=== PATIENT | male | born 1945 | race Caucasian/White ===

== ENCOUNTER 2020-10-05 12:51 | Emergency (ER) | payer OTHER ==
--- OUTSIDE RECORDS SUMMARY | 2020-10-05 12:55 | XMS REPORT | Continuity of Care Document ---
:1945 Author Organization [facility] t Address [address] [place] [address] Care Team Providers Name Role Phone Araseli CRONIN, H Attending Clinician Lab, Fam Pob I Attending Clinician Unavailable Jose Walker DO Attending Clinician Only, Test Attending Clinician Unavailable Doctor Unassigned, Name Attending Clinician Unavailable Joy NICHOLE Attending Clinician Unavailable Problems This patient has no known problems. Allergies, Adverse Reactions, Alerts This patient has no known allergies or adverse reactions. Medications This patient has no known medications. Procedures This patient has no known procedures. Encounters Start End Encounter Admission Attending Care Care Encounter Source Date/Time Date/Time Type Type Clinicians Facility Department ID 2020-06-27 2020-06-27 RAMILA Randall [id number] 00:00:00 00:00:00 (Out) Georgi BRASWELL [id number] [facility] [id number] [id number] 2020-06-26 2020-06-26 Laboratory Lab, [facility] 1.2.840.114 [id number] 15:50:21 16:10:21 Only Fam Pob I Health [id number] [place] 4.2.7.2.686 Professio [id number] nal [address] 2020-05-13 2020-05-13 Patient Aaron [facility] 1.2.840.114 [id number] 00:00:00 00:00:00 Outreach Param PRIMARY [id number] [facility] 4.2.7.2.686 PAVILLION [id number] 2020-03-28 2020-03-28 Laboratory Only, [facility] 1.2.840.114 [id number] 15:26:29 15:41:29 Only Test [place] [id number] [place] 4.2.7.2.686 [place] [id number] 2019-12-19 2019-12-19 Orders Doctor MCGRATH 1.2.840.114 [id number] 00:00:00 00:00:00 Only Unassigned, MICHAELLE [id number] [place] [facility] 4.2.7.2.686 [id number] 2019-10-25 2019-10-25 Telephone RAMILA Hamilton [id number] 00:00:00 00:00:00 Camila BRASWELL [id number] [facility] 4.2.7.2.686 [id number] 2019-10-21 2019-10-21 Laboratory Only, [facility] 1.2.840.114 [id number] 07:15:41 07:15:49 Only Test [place] [id number] [place] 4.2.7.2.686 [place] [id number] 2019-10-19 2019-10-19 Orders Doctor MCGRATH 1.2.840.114 [id number] 00:00:00 00:00:00 Only Unassigned, MICHAELLE [id number] [place] [facility] 4.2.7.2.686 [id number] 2019-10-05 2019-10-05 Orders Doctor MCGRATH 1.2.840.114 [id number] 00:00:00 00:00:00 Only Unassigned, MICHAELLE [id number] [place] [address]686 [id number] 2019-09-21 2019-09-21 Orders Doctor RAMILA Ramiro2.840.114 [id number] 00:00:00 00:00:00 Only Unassigned, MICHAELLE [id number] [place] [address]686 [id number] 2019-09-08 2019-09-08 Orders Doctor RAMILA AntonyJim2.840.114 [id number] 00:00:00 00:00:00 Only Unassigned, MICHAELLE [id number] [place] [address]686 [id number] 2019-06-30 2019-06-30 Orders Doctor MCGRATH Antony.2.840.114 [id number] 00:00:00 00:00:00 Only Unassigned, MICHAELLE 350.1.13.10 [place] [address]686 [id number] 2019-04-19 2019-04-19 Orders Doctor RAMILA Antony.2.840.114 [id number] 00:00:00 00:00:00 Only Unassigned, MICHAELLE [id number] [place] [address]686 [id number] 2018-12-10 2018-12-10 Orders Doctor MCGRATH AntonyJim2.840.114 [id number] 00:00:00 00:00:00 Only Unassigned, MICHAELLE [id number] [place] [id number] [id number] Results This patient has no known results.
--- NOTE | 2020-10-05 16:22 | RAD REPORT ---
EXAM DESCRIPTION: RAD - Chest Single View - 10/05/2020 3:58 pm CLINICAL HISTORY: cough, sob COMPARISON: March 2020 TECHNIQUE: AP portable chest image was obtained 10/05/2020 3:58 pm . FINDINGS: No peripheral mass consolidation. Heart size is mildly prominent. Central vasculature prom inent as well. Left-sided pacemaker is again noted. Interstitial markings are prominent. No measurabl e pleural effusion and no pneumothorax. No acute bony abnormality seen. No acute aortic findings susp ected. IMPRESSION: No focal mass or consolidation. Heart, vasculature and lung markings are all mildly prominent. Correlation is needed with any clinica l findings for mild failure or volume overload.
--- NOTE | 2020-10-05 16:41 | ER ---
Nurse's Notes [facility] Name: Rudi Moreno Age: 75 yrs Sex: Male : 1945 Arrival Date: 10/05/2020 Time: 12:56 Bed 13 [facility] MD: Diagnosis: Acute upper respiratory infection, unspecified Presentation: 10/05 13:08 Chief complaint: Patient states: Cough, runny nose for 1 week. O2 sat 88-93% this ss morning, home health nurse sent him in for eval. No fever. Coronavirus screen: Client denies travel out of the [place] in the last 14 days. congestion, cough unrelated to allergies, difficulty breathing, shortness of breath. Ebola Screen: Patient denies travel to an Ebola-affected area in the 21 days before illness onset. Initial Sepsis Screen: Does the patient meet any 2 criteria? No. Patient's initial sepsis screen is negative. Does the patient have a suspected source of infection? Yes: Productive cough/pneumonia. Risk Assessment: Do you want to hurt yourself or someone else? Patient reports no desire to harm self or others. Onset of symptoms was September 28, 2020. 13:08 Method Of Arrival: Wheelchair ss 13:08 Acuity: ERICK 3 ss Historical: - Allergies: 13:11 NKA; ss 13:11 Iodine; ss - PMHx: 13:11 Gout; CHF; Diabetes - IDDM; COPD; Hypothyroidism; Anemia; Atrial Fib; PAD; ss - PSHx: 13:11 pacemaker; ss - Immunization history:: Client reports receiving the 2nd dose of the Covid vaccine, Flu vaccine is up to date. - Social history:: Smoking status: Patient/guardian denies using tobacco, the patient reports quitting approximately 20 years ago. Screenin:37 Abuse screen: Denies threats or abuse. Denies injuries from another. Nutritional zb screening: No deficits noted. Tuberculosis screening: No symptoms or risk factors identified. Fall Risk Fall in past 12 months (25 points). Secondary diagnosis (15 points) impaired mobility, No IV (0 pts). Ambulatory Aid- None/Bed Rest/Nurse Assist (0 pts). Gait- Normal/Bed Rest/Wheelchair (0 pts) Mental Status- Oriented to own ability (0 pts). Total Clark Fall Scale indicates Low Risk Score (25-44 pts). Fall prevention measures have been instituted. Side Rails Up X 2 Placed close to Nursing Station Frequent Obs/Assesments occuring As available Patient and Family Educated on Fall Prevention Program and strategies. Assessment: 15:38 General: Appears in no apparent distress. comfortable, Behavior is calm, cooperative. zb Pain: Denies pain. Neuro: Level of Consciousness is awake, alert, obeys commands, Oriented to person, place, time, situation. Cardiovascular: Heart tones S1 S2 present Patient's skin is warm and dry. Respiratory: Airway is patent Respiratory effort is even, unlabored, Respiratory pattern is regular, Breath sounds are diminished bilaterally. Breath sounds with rhonchi in left posterior lower lobe and right posterior lower lobe the patient has mild shortness of breath. GI: Abdomen is flat. Derm: Skin is fragile, is thin, Skin is normal. Musculoskeletal: Range of motion: intact in all extremities. Vital Signs: 13:08 BP 149 / 67; Pulse 70; Resp 18; Temp 97.7; Pulse Ox 96% on 3 lpm NC; Weight 85.28 kg; ss Height 5 ft. 8 in. (172.72 cm); Pain 0/10; 15:40 BP 150 / 72; Pulse 70; Resp 18; Pulse Ox 100% on 6 lpm NC; zb 16:49 BP 149 / 80; Pulse 70; Resp 16; Pulse Ox 100% on 3 lpm NC; zb 13:08 Body Mass Index 28.59 (85.28 kg, 172.72 cm) ED Course: 12:56 Patient arrived in ED. bp1 13:08 Arm band placed on. ss 13:10 Triage completed. ss 13:42 Jarrod Burgos PA is PHCP. jmm 13:42 Hola Moreno MD is Attending Physician. jmm 13:43 Dontae Peters MD is Attending Physician. jmm 14:51 Rosalia Huffman, DAYANARA is Primary Nurse. zb 15:58 Chest Single View XRAY In Process Unspecified. EDMS 16:49 No provider procedures requiring assistance completed. Patient did not have IV access zb during this emergency room visit. 16:50 Patient has correct armband on for positive identification. Bed in low position. Call zb light in reach. Administered Medications: No medications were administered Outcome: 16:40 Discharge ordered by . jmm 16:49 Discharged to home via wheelchair. felix 16:49 Condition: stable 16:49 Discharge instructions given to patient, Instructed on discharge instructions, follow up and referral plans. medication usage, Demonstrated understanding of instructions, follow-up care, medications, Prescriptions given X 3. 16:50 Patient left the ED. felix Signatures: Dispatcher [employer] EDMS Jarrod Burgos PA PA jmm Smirch, Shelby, Montse Galvez RN, Zipporah, RN RN zb
--- NOTE | 2020-10-05 16:41 | EDPHYS ---
Physician Documentation [facility] Name: Rudi Moreno Age: 75 yrs Sex: Male : 1945 Arrival Date: 10/05/2020 Time: 12:56 Bed 13 Private MD: ED Physician Dontae Peters HPI: 10/05 14:39 This 75 yrs old Male presents to ER via Wheelchair with complaints of Runny jmm Nose, Cough. 14:39 The patient or guardian reports cough. Onset: The symptoms/episode began/occurred jmm gradually, 1 week(s) ago. Modifying factors: The symptoms are alleviated by nothing, the symptoms are aggravated by nothing. Associated signs and symptoms: Pertinent positives: rhinorrhea, Pertinent negatives: fever. This is a 75 year old male with a history of CHF, DM, COPD, anemia, hypothyroidism that presents to the ED with complaints of sinus congestion, cough. Patient states this has exacerbated his COPD. Having difficulty getting o2 through his nasal cannula. Denies hemoptysis or leg swelling. . Historical: - Allergies: 13:11 NKA; ss 13:11 Iodine; ss - PMHx: 13:11 Gout; CHF; Diabetes - IDDM; COPD; Hypothyroidism; Anemia; Atrial Fib; PAD; ss - PSHx: 13:11 pacemaker; ss - Immunization history:: Client reports receiving the 2nd dose of the Covid vaccine, Flu vaccine is up to date. - Social history:: Smoking status: Patient/guardian denies using tobacco, the patient reports quitting approximately 20 years ago. ROS: 14:39 Constitutional: Negative for fever, chills, and weight loss. jmm 14:39 ENT: Positive for sinus congestion. 14:39 Respiratory: Positive for cough. 14:39 All other systems are negative. Exam: 14:39 Constitutional: This is a well developed, well nourished patient who is awake, alert, jmm and in no acute distress. Head/Face: atraumatic. Eyes: EOMI, no conjunctival erythema appreciated ENT: Moist Mucus Membranes Neck: Trachea midline, Supple Chest/axilla: Normal chest wall appearance and motion. Cardiovascular: Regular rate and rhythm. No edema appreciated Respiratory: Normal respirations, no respiratory distress appreciated Abdomen/GI: Non distended, soft Back: Normal ROM Skin: General appearance color normal 14:39 Musculoskeletal/extremity: ROM: intact in all extremities. 14:39 Skin: Appearance: Color: normal in color. 14:39 Neuro: Orientation: is normal, Mentation: is normal, Memory: is normal. Vital Signs: 13:08 BP 149 / 67; Pulse 70; Resp 18; Temp 97.7; Pulse Ox 96% on 3 lpm NC; Weight 85.28 kg; ss Height 5 ft. 8 in. (172.72 cm); Pain 0/10; 15:40 BP 150 / 72; Pulse 70; Resp 18; Pulse Ox 100% on 6 lpm NC; zb 16:49 BP 149 / 80; Pulse 70; Resp 16; Pulse Ox 100% on 3 lpm NC; zb 13:08 Body Mass Index 28.59 (85.28 kg, 172.72 cm) ss MDM: 14:39 Patient medically screened. [facility] 16:38 Data reviewed: vital signs, nurses notes. Counseling: I had a detailed discussion with [facility] the patient and/or guardian regarding: the historical points, exam findings, and any diagnostic results supporting the discharge/admit diagnosis, radiology results, the need for outpatient follow up, to return to the emergency department if symptoms worsen or persist or if there are any questions or concerns that arise at home. ED course: Patient is alert and non toxic in appearance in the ED. No signs of resp distress. Patient advised to follow up with pcp and otherwise given strict return precautions. patient understood and agrees with the plan of care. . 10/05 14:40 Order name: Chest Single View XRAY; Complete Time: 16:22 [facility] Administered Medications: No medications were administered Disposition: 10/06 14:36 Co-signature as Attending Physician, Dontae Peters MD. ma2 Disposition: 10/05/20 16:40 Discharged to Home. Impression: Acute upper respiratory infection, unspecified. - Condition is Stable. - Discharge Instructions: Upper Respiratory Infection, Adult. - Prescriptions for Prednisone 20 mg Oral Tablet - take 3 tablet by ORAL route once daily for 5 days; 15 tablet. Zithromax Z- Tor 250 mg Oral Tablet - take 1 tablet by ORAL route as directed for 5 days Day 1 - take two (2) tablets one time. Day 2, 3, 4 , 5 take one (1) tablet once daily.; 6 tablet. Albuterol Sulfate 90 mcg/actuation - inhale 1-2 puff by INHALATION route every 4-6 hours; 1 Inhaler. - Medication Reconciliation Form, Thank You Letter, Antibiotic Education, Prescription Opioid Use form. - Follow up: Private Physician; When: 2 - 3 days; Reason: Recheck today's complaints, Continuance of care, Re-evaluation by your physician. Signatures: Dispatcher [employer] EDMS Jarrod Burgos PA PA jmm Smirch, Shelby, RN RN Dontae Peters MD MD ma2 Rosalia Huffman RN RN zb Corrections: (The following items were deleted from the chart) 10/05 16:50 16:40 10/05/2020 16:40 Discharged to Home. Impression: Acute upper respiratory zb infection, unspecified. Condition is Stable. Forms are Medication Reconciliation Form, Thank You Letter, Antibiotic Education, Prescription Opioid Use. Follow up: Private Physician; When: 2 - 3 days; Reason: Recheck today's complaints, Continuance of care, Re-evaluation by your physician. temo
[2020-10-05 16:55] VITALS: TEMP 97.7
[2020-10-05 16:57] VITALS: O2SAT 100
[2020-10-05 16:58] VITALS: BP 149/80
== END 2020-10-05 16:50 | disposition home or self-care (01) ==
LOC: ER 12:51
DX: J06.9 Acute upper respiratory infection, unspecified (principal); Z87.891 Personal history of nicotine dependence; M10.9 Gout, unspecified; I50.9 Heart failure, unspecified; E11.51 Type 2 diabetes mellitus with diabetic peripheral angiopathy without gangrene; J44.9 Chronic obstructive pulmonary disease, unspecified; E03.9 Hypothyroidism, unspecified; D64.9 Anemia, unspecified; I48.91 Unspecified atrial fibrillation; Z95.0 Presence of cardiac pacemaker
CPT/HCPCS: 71045

== ENCOUNTER 2021-08-17 00:55 | Emergency (ER) | payer OTHER ==
--- OUTSIDE RECORDS SUMMARY | 2021-08-17 01:26 | XMS REPORT | Continuity of Care Document ---
:1945 Author Organization [facility] t Address [address] [place] [address] Care Team Providers Name Role Phone PHAN Primary Care Physician Unavailable Sharon Attending Clinician Unavailable Leslie Attending Clinician Unavailable LEWIS Attending Clinician Unavailable DAISY Attending Clinician Unavailable Doctor Unassigned, Name Attending Clinician Unavailable Araseli CRONIN, H Attending Clinician Lab, Fam Pob I Attending Clinician Unavailable Anedax NAVAP Attending Clinician PATRIZIA Attending Clinician Unavailable Claribel GANDHI Attending Clinician Unavailable JOSE STUART Attending Clinician Unavailable Jose Stuart DO Attending Clinician Only, Test Attending Clinician Unavailable Mj CRONIN Attending Clinician Lisy CLARKE Attending Clinician Unavailable Joy NICHOLE Attending Clinician Unavailable Lisy HAWTHORNE Attending Clinician Unavailable Lisy Doyle Attending Clinician Claribel ALEMAN Attending Clinician Unavailable COLLEEN VARNER Attending Clinician Unavailable COLLEEN VARNER Attending Clinician Unavailable PATY COTE Admitting Clinician Unavailable COLLEEN VARNER Admitting Clinician Unavailable Payers Payer Name Policy Type Policy Number Effective Date Expiration Date Clarissa alatorre MEDICARE PART A [id number] 2007 \T\ B 00:00:00 MEDICAID OF [place] [id number] 2007 00:00:00 Advance Directives Directive Decision Effective Termination Comments Source Date Date Healthcare Agents on N/A [facility] FileNameRelationshipHealthcare [facility] Agent Medical RelationshipCommunicationMagruder HospitalHealth Care [phone] (Mobile) [email or web address] [phone] (Mobile) Reymundo AndersonOther[facility] [phone] (Mobile) Problems Condition Condition Condition Status Onset Resolution Last Treating Co mments Source Name Details Category Date Date Treatment Clinician Date Hyperkalem Hyperkalem Disease Active 2018-04 U nivers ia ia 2-22 ity of 00:00: [address] Decreased Decreased Disease Active Uni vers activity activity 6-23 ity of tolerance tolerance 00:00: [address] Allergies, Adverse Reactions, Alerts Allergy Allergy Status Severity Reaction(s) Onset Inactive Treating Comm ents Source Name Type Date Date Clinician NO KNOWN Drug Active Univers ALLERGIE Class ity of S [facility] Social History Social Habit Start Date Stop Date Quantity Comments Source Exposure to 2021-08-02 2021-08-12 Not sure [facility] SARS-CoV-2 00:00:00 14:36:00 [facility] (event) [place] Alcohol intake 2019-04-26 2019-04-26 Ex-drinker [facility] 00:00:00 00:00:00 (finding) [facility] Tobacco use and 2019-02-22 2019-02-22 Never used Universit y of exposure 00:00:00 00:00:00 [facility] History of 2001-02-18 Cigarette Smoker [facility] ty of tobacco use 00:00:00 [facility] Sex [birth year] Universit y of 00:00:00 00:00:00 [facility] Smoking Status Start Date Stop Date Source Unknown if ever smoked [facility] Former smoker 2019-02-22 00:00:00 2019-02-22 00:00:00 [facility] Medications Ordered Filled Start Stop Current Ordering Indication Dosage Frequency Signature Comments Components Source Medication Medication Date Date Medication? Clinician (SIG) Name Name allopurinol 2018-04 Yes 100mg Take 100 U nivers 100 mg 2-27 mg by ity of tablet 23:33: mouth [place] 57 daily. Medical Branch aspirin 81 2018-04 Yes 81mg Take 81 mg U nivers mg chewable 2-27 by mouth ity of tablet 23:33: daily. [place] 57 Medical Branch bisacodyl 5 2018-04 Yes 5mg Take 5 mg U nivers mg EC 2-27 by mouth ity of tablet 23:33: once daily [place] 57 as needed Medical for Branch Constipati on. docusate 2018-04 Yes 100mg Take 100 Univ ers 100 mg 2-27 mg by ity of capsule 23:33: mouth [place] 57 daily. Medical Branch apixaban 2018-04 Yes 5mg Take 5 mg Univ ers (ELIQUIS) 2-27 by mouth 2 ity of 2.5 mg 23:33: (two) [place] tablet 57 times Medical daily. Branch ferrous 2018-04 Yes 325mg Take 325 Unive rs sulfate 325 2-27 mg by ity of mg (65 mg 23:33: mouth 3 [place] iron) EC 57 (three) Medical tablet times [place] daily with meals. gabapentin 2018-04 Yes 300mg Take 300 Un clara 300 mg 2-27 mg by ity of capsule 23:33: mouth 2 [place] 57 (two) Medical times Branch daily. Indication s: 2 capsules by mouth 2 times a day insulin 2018- Yes 20U inject 20 Unive rs glargine,hu 2-27 Units ity of m.rec.anlog 23:33: [place] the [place] (LANTUS 57 skin at Medical U-100 bedtime. Branch INSULIN SC) budesonide- 2018-04 Yes 2{puff} Inhale 2 Univers formoterol 2-27 Puffs 2 ity of (SYMBICORT) 23:33: (two) [place] 80-4.5 57 times Medical mcg/actuati daily. Branch on inhaler tamsulosin 2018-04 Yes Take by Uni vers 0.4 mg 24 2-27 mouth at ity of hr capsule 23:33: bedtime. [place] 57 Medical Branch torsemide 2018-04 Yes 20mg Take 20 mg Un clara 20 mg 2-27 by mouth 2 ity of tablet 23:33: (two) [place] 57 times Medical daily. Branch traZODone 2018-04 Yes 2722 100mg Take 100 Uni vers 100 mg 2-27 mg by ity of tablet 23:33: mouth at [place] 57 bedtime. Medical Indication Branch s: difficulty sleeping vitamin 2018-04 Yes 1000ug Take 1,000 Un clara B-12 2-27 mcg by ity of (VITAMIN 23:33: mouth [place] B-12) 1,000 57 daily. Medica l mcg tablet Branch ascorbic 2018-04 Yes 500mg Take 500 Univ ers acid, 2-27 mg by ity of vitamin C, 23:33: mouth [place] (VITAMIN C) 57 (two) Medical 500 mg times Branch tablet daily. ondansetron 2018-04 Yes 4mg Take 4 mg U nivers 4 mg tablet 2-27 by mouth ity of 23:33: every 8 [place] 57 (eight) Medical hours as Branch needed. allopurinol 2018-04 Yes 100mg Take 100 U nivers 100 mg 2-27 mg by ity of tablet 23:33: mouth [place] 57 daily. Medical Branch aspirin 81 2018-04 Yes 81mg Take 81 mg U nivers mg chewable 2-27 by mouth ity of tablet 23:33: daily. [place] 57 Medical Branch bisacodyl 5 2018-04 Yes 5mg Take 5 mg U nivers mg EC 2-27 by mouth ity of tablet 23:33: once daily [place] 57 as needed Medical for Branch Constipati on. docusate 2018-04 Yes 100mg Take 100 Univ ers 100 mg 2-27 mg by ity of capsule 23:33: mouth [place] 57 daily. Medical Branch apixaban 2018-04 Yes 5mg Take 5 mg Univ ers (ELIQUIS) 2-27 by mouth 2 ity of 2.5 mg 23:33: (two) [place] tablet 57 times Medical daily. Branch ferrous 2018-04 Yes 325mg Take 325 Unive rs sulfate 325 2-27 mg by ity of mg (65 mg 23:33: mouth 3 [place] iron) EC 57 (three) Medical tablet times Branch daily with meals. gabapentin 2018-04 Yes 300mg Take 300 Un clara 300 mg 2-27 mg by ity of capsule 23:33: mouth 2 [place] 57 (two) Medical times Branch daily. Indication s: 2 capsules by mouth 2 times a day insulin 2018-04 Yes 20U inject 20 Unive rs glargine,hu 2-27 Units ity of m.rec.anlog 23:33: under the [place] (LANTUS 57 skin at Medical U-100 bedtime. Branch INSULIN SC) budesonide- 2018-04 Yes 2{puff} Inhale 2 Univers formoterol 2-27 Puffs 2 ity of (SYMBICORT) 23:33: (two) [place] 80-4.5 57 times Medical mcg/actuati daily. Branch on inhaler tamsulosin 2018-04 Yes Take by Uni vers 0.4 mg 24 2-27 mouth at ity of hr capsule 23:33: bedtime. [place] 57 Medical Branch torsemide 2018-04 Yes 20mg Take 20 mg Un clara 20 mg 2-27 by mouth 2 ity of tablet 23:33: (two) [place] 57 times Medical daily. Branch traZODone 2018-04 Yes 2722 100mg Take 100 Uni vers 100 mg 2-27 mg by ity of tablet 23:33: mouth at [place] 57 bedtime. Medical Indication Branch s: difficulty sleeping vitamin 2018-04 Yes 1000ug Take 1,000 Un clara B-12 2-27 mcg by ity of (VITAMIN 23:33: mouth [place] B-12) 1,000 57 daily. Medica l mcg tablet Branch ascorbic 2018-04 Yes 500mg Take 500 Univ ers acid, 2-27 mg by ity of vitamin C, 23:33: mouth 2 [place] (VITAMIN C) 57 (two) Medical 500 mg times Branch tablet daily. ondansetron 2018-04 Yes 4mg Take 4 mg U nivers 4 mg tablet 2-27 by mouth ity of 23:33: every 8 [place] 57 (eight) Medical hours as Branch needed. allopurinol 2018-04 Yes 100mg Take 100 U nivers 100 mg 2-27 mg by ity of tablet 23:33: mouth [place] 57 daily. Medical Branch aspirin 81 2018-04 Yes 81mg Take 81 mg U nivers mg chewable 2-27 by mouth ity of tablet 23:33: daily. [place] 57 Medical Branch bisacodyl 5 2018-04 Yes 5mg Take 5 mg U nivers mg EC 2-27 by mouth ity of tablet 23:33: once daily [place] 57 as needed Medical for Branch Constipati on. docusate 2018-04 Yes 100mg Take 100 Univ ers 100 mg 2-27 mg by ity of capsule 23:33: mouth [place] 57 daily. Medical Branch apixaban 2018-04 Yes 5mg Take 5 mg Univ ers (ELIQUIS) 2-27 by mouth 2 ity of 2.5 mg 23:33: (two) [place] tablet 57 times Medical daily. Branch ferrous 2018-04 Yes 325mg Take 325 Unive rs sulfate 325 2-27 mg by ity of mg (65 mg 23:33: mouth 3 [place] iron) EC 57 (three) Medical tablet times Branch daily with meals. gabapentin 2018-04 Yes 300mg Take 300 Un [place] 300 mg 2-27 mg by ity of capsule 23:33: mouth 2 [place] 57 (two) Medical times Branch daily. Indication s: 2 capsules by mouth 2 times a day insulin 2018-04 Yes 20U inject 20 Unive rs glargine,hu 2-27 Units ity of m.rec.anlog 23:33: under the [place] (LANT[place] 57 skin at Medical U-100 bedtime. Branch INSULIN SC) budesonide- 2018-04 Yes 2{puff} Inhale 2 Univers formoterol 2-27 Puffs 2 ity of (SYMBICORT) 23:33: (two) [place] 80-4.5 57 times Medical mcg/actuati daily. Branch on inhaler tamsulosin 2018-04 Yes Take by Uni vers 0.4 mg 24 2-27 mouth at ity of hr capsule 23:33: bedtime. [place] 57 Medical Branch torsemide 2018-04 Yes 20mg Take 20 mg Un clara 20 mg 2-27 by mouth 2 ity of tablet 23:33: (two) [place] 57 times Medical daily. Branch traZODone 2018-04 Yes 2722 100mg Take 100 Uni vers 100 mg 2-27 mg by ity of tablet 23:33: mouth at [place] 57 bedtime. Medical Indication Branch s: difficulty sleeping vitamin 2018-04 Yes 1000ug Take 1,000 Un cl[place] B-12 2-27 mcg by ity of (VITAMIN 23:33: mouth [place] B-12) 1,000 57 daily. Medica l mcg tablet Branch ascorbic 2018-04 Yes 500mg Take 500 Univ ers acid, 2-27 mg by ity of vitamin C, 23:33: mouth 2 [place] (VITAMIN C) 57 (two) Medical 500 mg times Branch tablet daily. ondansetron 2018-04 Yes 4mg Take 4 mg U nivers 4 mg tablet 2-27 by mouth ity of 23:33: every 8 [place] 57 (eight) Medical hours as Branch needed. allopurinol 2018-04 Yes 100mg Take 100 U nivers 100 mg 2-27 mg by ity of tablet 23:33: mouth [place] 57 daily. Medical Branch aspirin 81 2018-04 Yes 81mg Take 81 mg U nivers mg chewable 2-27 by mouth ity of tablet 23:33: daily. [place] 57 Medical Branch bisacodyl 5 2018-04 Yes 5mg Take 5 mg U nivers mg EC 2-27 by mouth ity of tablet 23:33: once daily [place] 57 as needed Medical for Branch Constipati on. docusate 2018-04 Yes 100mg Take 100 Univ ers 100 mg 2-27 mg by ity of capsule 23:33: mouth [place] 57 daily. Medical Branch apixaban 2018-04 Yes 5mg Take 5 mg Univ ers (ELIQUIS) 2-27 by mouth 2 ity of 2.5 mg 23:33: (two) [place] tablet 57 times Medical daily. Branch ferrous 2018-04 Yes 325mg Take 325 Unive rs sulfate 325 2-27 mg by ity of mg (65 mg 23:33: mouth 3 [place] iron) EC 57 (three) Medical tablet times Branch daily with meals. gabapentin 2018-04 Yes 300mg Take 300 Un clara 300 mg 2-27 mg by ity of capsule 23:33: mouth 2 [place] 57 (two) Medical times Branch daily. Indication s: 2 capsules by mouth 2 times a day insulin 2018-04 Yes 20U inject 20 Unive rs glargine,hu 2-27 Units ity of m.rec.anlog 23:33: under the [place] ([place] 57 skin at Medical U-100 bedtime. Branch INSULIN SC) budesonide- 2018-04 Yes 2{puff} Inhale 2 Univers formoterol 2-27 Puffs 2 ity of (SYMBICORT) 23:33: (two) [place] 80-4.5 57 times Medical mcg/actuati daily. Branch on inhaler tamsulosin 2018-04 Yes Take by Uni vers 0.4 mg 24 2-27 mouth at ity of hr capsule 23:33: bedtime. [place] 57 Medical Branch torsemide 2018-04 Yes 20mg Take 20 mg Un clara 20 mg 2-27 by mouth 2 ity of tablet 23:33: (two) [place] 57 times Medical daily. Branch traZODone 2018-04 Yes 2722 100mg Take 100 Uni vers 100 mg 2-27 mg by ity of tablet 23:33: mouth at [place] 57 bedtime. Medical Indication Branch s: difficulty sleeping vitamin 2018-04 Yes 1000ug Take 1,000 Un cl[place] B-12 2-27 mcg by ity of (VITAMIN 23:33: mouth [place] B-12) 1,000 57 daily. Medica l mcg tablet Branch ascorbic 2018-04 Yes 500mg Take 500 Univ ers acid, 2-27 mg by ity of vitamin C, 23:33: mouth 2 [place] (VITAMIN C) 57 (two) Medical 500 mg times Branch tablet daily. ondansetron 2018-04 Yes 4mg Take 4 mg U nivers 4 mg tablet 2-27 by mouth ity of 23:33: every 8 [place] 57 (eight) Medical hours as Branch needed. allopurinol 2018-04 Yes 100mg Take 100 U nivers 100 mg 2-27 mg by ity of tablet 23:33: mouth [place] 57 daily. Medical Branch aspirin 81 2018-04 Yes 81mg Take 81 mg U nivers mg chewable 2-27 by mouth ity of tablet 23:33: daily. [place] 57 Medical Branch bisacodyl 5 2018-04 Yes 5mg Take 5 mg U nivers mg EC 2-27 by mouth ity of tablet 23:33: once daily [place] 57 as needed Medical for Branch Constipati on. docusate 2018-04 Yes 100mg Take 100 Univ ers 100 mg 2-27 mg by ity of capsule 23:33: mouth [place] 57 daily. Medical Branch apixaban 2018-04 Yes 5mg Take 5 mg Univ ers (ELIQUIS) 2-27 by mouth 2 ity of 2.5 mg 23:33: (two) [place] tablet 57 times Medical daily. Branch ferrous 2018-04 Yes 325mg Take 325 Unive rs sulfate 325 2-27 mg by ity of mg (65 mg 23:33: mouth 3 [place] iron) EC 57 (three) Medical tablet times Branch daily with meals. gabapentin 2018-04 Yes 300mg Take 300 Un clara 300 mg 2-27 mg by ity of capsule 23:33: mouth 2 [place] 57 (two) Medical times Branch daily. Indication s: 2 capsules by mouth 2 times a day insulin 2018-04 Yes 20U inject 20 Unive rs glargine,hu 2-27 Units ity of m.rec.anlog 23:33: under the [place] ([place] 57 skin at Medical U-100 bedtime. Branch INSULIN SC) budesonide- 2018-04 Yes 2{puff} Inhale 2 Univers formoterol 2-27 Puffs 2 ity of (SYMBICORT) 23:33: (two) [place] 80-4.5 57 times Medical mcg/actuati daily. Branch on inhaler tamsulosin 2018-04 Yes Take by Uni vers 0.4 mg 24 2-27 mouth at ity of hr capsule 23:33: bedtime. [place] 57 Medical Branch torsemide 2018-04 Yes 20mg Take 20 mg Un clara 20 mg 2-27 by mouth 2 ity of tablet 23:33: (two) [place] 57 times Medical daily. Branch traZODone 2018-04 Yes 2722 100mg Take 100 Uni vers 100 mg 2-27 mg by ity of tablet 23:33: mouth at [place] 57 bedtime. Medical Indication Branch s: difficulty sleeping vitamin 2018- Yes 1000ug Take 1,000 Un cl[place] B-12 2-27 mcg by ity of (VITAMIN 23:33: mouth [place] B-12) 1,000 57 daily. Medica l mcg tablet Branch ascorbic 2018-04 Yes 500mg Take 500 Univ ers acid, 2-27 mg by ity of vitamin C, 23:33: mouth 2 [place] (VITAMIN C) 57 (two) Medical 500 mg times Branch tablet daily. ondansetron 2018-04 Yes 4mg Take 4 mg U nivers 4 mg tablet 2-27 by mouth ity of 23:33: every 8 [place] 57 (eight) Medical hours as Branch needed. allopurinol 2018-04 Yes 100mg Take 100 U nivers 100 mg 2-27 mg by ity of tablet 23:33: mouth [place] 57 daily. Medical Branch aspirin 81 2018-04 Yes 81mg Take 81 mg U nivers mg chewable 2-27 by mouth ity of tablet 23:33: daily. [place] 57 Medical Branch bisacodyl 5 2018-04 Yes 5mg Take 5 mg U nivers mg EC 2-27 by mouth ity of tablet 23:33: once daily [place] 57 as needed Medical for Branch Constipati on. docusate 2018-04 Yes 100mg Take 100 Univ ers 100 mg 2-27 mg by ity of capsule 23:33: mouth [place] 57 daily. Medical Branch apixaban 2018-04 Yes 5mg Take 5 mg Univ ers (ELIQUIS) 2-27 by mouth 2 ity of 2.5 mg 23:33: (two) [place] tablet 57 times Medical daily. Branch ferrous 2018-04 Yes 325mg Take 325 Unive rs sulfate 325 2-27 mg by ity of mg (65 mg 23:33: mouth 3 [place] iron) EC 57 (three) Medical tablet times Branch daily with meals. gabapentin 2018-04 Yes 300mg Take 300 Un clara 300 mg 2-27 mg by ity of capsule 23:33: mouth 2 [place] 57 (two) Medical times Branch daily. Indication s: 2 capsules by mouth 2 times a day insulin 2018-04 Yes 20U inject 20 Unive rs glargine,hu 2-27 Units ity of m.rec.anlog 23:33: under the [place] ([place] 57 skin at Medical U-100 bedtime. Branch INSULIN SC) budesonide- 2018-04 Yes 2{puff} Inhale 2 Univers formoterol 2-27 Puffs 2 ity of (SYMBICORT) 23:33: (two) [place] 80-4.5 57 times Medical mcg/actuati daily. Branch on inhaler tamsulosin 2018-04 Yes Take by Uni vers 0.4 mg 24 2-27 mouth at ity of hr capsule 23:33: bedtime. [place] 57 Medical Branch torsemide 2018-04 Yes 20mg Take 20 mg Un clara 20 mg 2-27 by mouth 2 ity of tablet 23:33: (two) [place] 57 times Medical daily. Branch traZODone 2018-04 Yes 2722 100mg Take 100 Uni vers 100 mg 2-27 mg by ity of tablet 23:33: mouth at [place] 57 bedtime. Medical Indication Branch s: difficulty sleeping vitamin 2018- Yes 1000ug Take 1,000 Un cl[place] B-12 2-27 mcg by ity of (VITAMIN 23:33: mouth [place] B-12) 1,000 57 daily. Medica l mcg tablet Branch ascorbic 2018-04 Yes 500mg Take 500 Univ ers acid, 2-27 mg by ity of vitamin C, 23:33: mouth 2 [place] (VITAMIN C) 57 (two) Medical 500 mg times Branch tablet daily. ondansetron 2018-04 Yes 4mg Take 4 mg U nivers 4 mg tablet 2-27 by mouth ity of 23:33: every 8 [place] 57 (eight) Medical hours as Branch needed. allopurinol 2018-04 Yes 100mg Take 100 U nivers 100 mg 2-27 mg by ity of tablet 23:33: mouth [place] 57 daily. Medical Branch aspirin 81 2018-04 Yes 81mg Take 81 mg U nivers mg chewable 2-27 by mouth ity of tablet 23:33: daily. [place] 57 Medical Branch bisacodyl 5 2018-04 Yes 5mg Take 5 mg U nivers mg EC 2-27 by mouth ity of tablet 23:33: once daily [place] 57 as needed Medical for Branch Constipati on. docusate 2018-04 Yes 100mg Take 100 Univ ers 100 mg 2-27 mg by ity of capsule 23:33: mouth [place] 57 daily. Medical Branch apixaban 2018-04 Yes 5mg Take 5 mg Univ ers (ELIQUIS) 2-27 by mouth 2 ity of 2.5 mg 23:33: (two) [place] tablet 57 times Medical daily. Branch ferrous 2018-04 Yes 325mg Take 325 Unive rs sulfate 325 2-27 mg by ity of mg (65 mg 23:33: mouth 3 [place] iron) EC 57 (three) Medical tablet times Branch daily with meals. gabapentin 2018-04 Yes 300mg Take 300 Un cl[place] 300 mg 2-27 mg by ity of capsule 23:33: mouth 2 [place] 57 (two) Medical times Branch daily. Indication s: 2 capsules by mouth 2 times a day insulin 2018-04 Yes 20U inject 20 Unive rs glargine,hu 2-27 Units ity of m.rec.anlog 23:33: under the [place] ([place] 57 skin at Medical U-100 bedtime. Branch INSULIN SC) budesonide- 2018-04 Yes 2{puff} Inhale 2 Univers formoterol 2-27 Puffs 2 ity of (SYMBICORT) 23:33: (two) [place] 80-4.5 57 times Medical mcg/actuati daily. Branch on inhaler tamsulosin 2018-04 Yes Take by Uni vers 0.4 mg 24 2-27 mouth at ity of hr capsule 23:33: bedtime. [place] 57 Medical Branch torsemide 2018-04 Yes 20mg Take 20 mg Un clara 20 mg 2-27 by mouth 2 ity of tablet 23:33: (two) [place] 57 times Medical daily. Branch traZODone 2018-04 Yes 2722 100mg Take 100 Uni vers 100 mg 2-27 mg by ity of tablet 23:33: mouth at [place] 57 bedtime. Medical Indication Branch s: difficulty sleeping vitamin 2018-04 Yes 1000ug Take 1,000 Un cl[place] B-12 2-27 mcg by ity of (VITAMIN 23:33: mouth [place] B-12) 1,000 57 daily. Medica l mcg tablet Branch ascorbic 2018-04 Yes 500mg Take 500 Univ ers acid, 2-27 mg by ity of vitamin C, 23:33: mouth 2 [place] (VITAMIN C) 57 (two) Medical 500 mg times Branch tablet daily. ondansetron 2018-04 Yes 4mg Take 4 mg U nivers 4 mg tablet 2-27 by mouth ity of 23:33: every 8 [place] 57 (eight) Medical hours as Branch needed. allopurinol 2018-04 Yes 100mg Take 100 U nivers 100 mg 2-27 mg by ity of tablet 23:33: mouth [place] 57 daily. Medical Branch aspirin 81 2018-04 Yes 81mg Take 81 mg U nivers mg chewable 2-27 by mouth ity of tablet 23:33: daily. [place] 57 Medical Branch bisacodyl 5 2018-04 Yes 5mg Take 5 mg U nivers mg EC 2-27 by mouth ity of tablet 23:33: once daily [place] 57 as needed Medical for Branch Constipati on. docusate 2018-04 Yes 100mg Take 100 Univ ers 100 mg 2-27 mg by ity of capsule 23:33: mouth [place] 57 daily. Medical Branch apixaban 2018-04 Yes 5mg Take 5 mg Univ ers (ELIQUIS) 2-27 by mouth 2 ity of 2.5 mg 23:33: (two) [place] tablet 57 times Medical daily. Branch ferrous 2018-04 Yes 325mg Take 325 Unive rs sulfate 325 2-27 mg by ity of mg (65 mg 23:33: mouth 3 [place] iron) EC 57 (three) Medical tablet times Branch daily with meals. gabapentin 2018-04 Yes 300mg Take 300 Un cl[place] 300 mg 2-27 mg by ity of capsule 23:33: mouth 2 [place] 57 (two) Medical times Branch daily. Indication s: 2 capsules by mouth 2 times a day insulin 2018-04 Yes 20U inject 20 Unive rs glargine,hu 2-27 Units ity of m.rec.anlog 23:33: under the [place] ([place] 57 skin at Medical U-100 bedtime. Branch INSULIN SC) budesonide- 2018-04 Yes 2{puff} Inhale 2 Univers formoterol 2-27 Puffs 2 ity of (SYMBICORT) 23:33: (two) [place] 80-4.5 57 times Medical mcg/actuati daily. Branch on inhaler tamsulosin 2018-04 Yes Take by Uni vers 0.4 mg 24 2-27 mouth at ity of hr capsule 23:33: bedtime. [place] 57 Medical Branch torsemide 2018-04 Yes 20mg Take 20 mg Un cl[place] 20 mg 2-27 by mouth 2 ity of tablet 23:33: (two) [place] 57 times Medical daily. Branch traZODone 2018-04 Yes 2722 100mg Take 100 Uni vers 100 mg 2-27 mg by ity of tablet 23:33: mouth at [place] 57 bedtime. Medical Indication Branch s: difficulty sleeping vitamin 2018- Yes 1000ug Take 1,000 Un cl[place] B-12 2-27 mcg by ity of (VITAMIN 23:33: mouth [place] B-12) 1,000 57 daily. Medica l mcg tablet Branch ascorbic 2019-1 Yes 500mg Take 500 Univ ers acid, 2-27 mg by ity of vitamin C, 23:33: mouth 2 [place] (VITAMIN C) 57 (two) Medical 500 mg times Branch tablet daily. ondansetron 2018-04 Yes 4mg Take 4 mg U nivers 4 mg tablet 2-27 by mouth ity of 23:33: every 8 [place] 57 (eight) Medical hours as Branch needed. allopurinol 2018-04 Yes 100mg Take 100 U nivers 100 mg 2-27 mg by ity of tablet 23:33: mouth [place] 57 daily. Medical Branch aspirin 81 2018-04 Yes 81mg Take 81 mg U nivers mg chewable 2-27 by mouth ity of tablet 23:33: daily. [place] 57 Medical Branch bisacodyl 5 2018-04 Yes 5mg Take 5 mg U nivers mg EC 2-27 by mouth ity of tablet 23:33: once daily [place] 57 as needed Medical for Branch Constipati on. docusate 2018-04 Yes 100mg Take 100 Univ ers 100 mg 2-27 mg by ity of capsule 23:33: mouth [place] 57 daily. Medical Branch apixaban 2018-04 Yes 5mg Take 5 mg Univ ers (ELIQUIS) 2-27 by mouth 2 ity of 2.5 mg 23:33: (two) [place] tablet 57 times Medical daily. Branch ferrous 2018-04 Yes 325mg Take 325 Unive rs sulfate 325 2-27 mg by ity of mg (65 mg 23:33: mouth 3 [place] iron) EC 57 (three) Medical tablet times Branch daily with meals. gabapentin 2018-04 Yes 300mg Take 300 Un clara 300 mg 2-27 mg by ity of capsule 23:33: mouth 2 [place] 57 (two) Medical times Branch daily. Indication s: 2 capsules by mouth 2 times a day insulin 2018-04 Yes 20U inject 20 Unive rs glargine,hu 2-27 Units ity of m.rec.anlog 23:33: under the [place] ([place] 57 skin at Medical U-100 bedtime. Branch INSULIN SC) budesonide- 2018-04 Yes 2{puff} Inhale 2 Univers formoterol 2-27 Puffs 2 ity of (SYMBICORT) 23:33: (two) [place] 80-4.5 57 times Medical mcg/actuati daily. Branch on inhaler tamsulosin 2018-04 Yes Take by Uni vers 0.4 mg 24 2-27 mouth at ity of hr capsule 23:33: bedtime. [place] 57 Medical Branch torsemide 2018-04 Yes 20mg Take 20 mg Un cl[place] 20 mg 2-27 by mouth 2 ity of tablet 23:33: (two) [place] 57 times Medical daily. Branch traZODone 2018-04 Yes 2722 100mg Take 100 Uni vers 100 mg 2-27 mg by ity of tablet 23:33: mouth at [place] 57 bedtime. Medical Indication Branch s: difficulty sleeping vitamin 2018- Yes 1000ug Take 1,000 Un [place] B-12 2-27 mcg by ity of (VITAMIN 23:33: mouth [place] B-12) 1,000 57 daily. Medica l mcg tablet Branch ascorbic 2018-04 Yes 500mg Take 500 Univ ers acid, 2-27 mg by ity of vitamin C, 23:33: mouth 2 [place] (VITAMIN C) 57 (two) Medical 500 mg times Branch tablet daily. ondansetron 2018-04 Yes 4mg Take 4 mg U nivers 4 mg tablet 2-27 by mouth ity of 23:33: every 8 [place] 57 (eight) Medical hours as Branch needed. allopurinol 2018-04 Yes 100mg Take 100 U nivers 100 mg 2-27 mg by ity of tablet 23:33: mouth [place] 57 daily. Medical Branch aspirin 81 2018-04 Yes 81mg Take 81 mg U nivers mg chewable 2-27 by mouth ity of tablet 23:33: daily. [place] 57 Medical Branch bisacodyl 5 2018-04 Yes 5mg Take 5 mg U nivers mg EC 2-27 by mouth ity of tablet 23:33: once daily [place] 57 as needed Medical for Branch Constipati on. docusate 2018-04 Yes 100mg Take 100 Univ ers 100 mg 2-27 mg by ity of capsule 23:33: mouth [place] 57 daily. Medical Branch apixaban 2018-04 Yes 5mg Take 5 mg Univ ers (ELIQUIS) 2-27 by mouth 2 ity of 2.5 mg 23:33: (two) [place] tablet 57 times Medical daily. Branch ferrous 2018-04 Yes 325mg Take 325 Unive rs sulfate 325 2-27 mg by ity of mg (65 mg 23:33: mouth 3 [place] iron) EC 57 (three) Medical tablet times Branch daily with meals. gabapentin 2018-04 Yes 300mg Take 300 Un clara 300 mg 2-27 mg by ity of capsule 23:33: mouth 2 [place] 57 (two) Medical times Branch daily. Indication s: 2 capsules by mouth 2 times a day insulin 2018-04 Yes 20U inject 20 Unive rs glargine,hu 2-27 Units ity of m.rec.anlog 23:33: [place] ([place] 57 skin at Medical U-100 bedtime. Branch INSULIN SC) budesonide- 2018-04 Yes 2{puff} Inhale 2 Univers formoterol 2-27 Puffs 2 ity of (SYMBICORT) 23:33: (two) [place] 80-4.5 57 times Medical mcg/actuati daily. Branch on inhaler tamsulosin 2018-04 Yes Take by Uni vers 0.4 mg 24 2-27 mouth at ity of hr capsule 23:33: bedtime. Mark [place] 57 Medical Branch torsemide 2018-04 Yes 20mg Take 20 mg Un clara 20 mg 2-27 by mouth 2 ity of tablet 23:33: (two) [place] 57 times Medical daily. Branch traZODone 2018-04 Yes 2722 100mg Take 100 Uni vers 100 mg 2-27 mg by ity of tablet 23:33: mouth at [place] 57 bedtime. Medical Indication Branch s: difficulty sleeping vitamin 2018-04 Yes 1000ug Take 1,000 Un clara B-12 2-27 mcg by ity of (VITAMIN 23:33: mouth [place] B-12) 1,000 57 daily. Medica l mcg tablet Branch ascorbic 2018-04 Yes 500mg Take 500 Univ ers acid, 2-27 mg by ity of vitamin C, 23:33: mouth 2 [place] (VITAMIN C[place] 57 (two) Medical 500 mg times Branch tablet daily. ondansetron 2018-04 Yes 4mg Take 4 mg U nivers 4 mg tablet 2-27 by mouth ity of 23:33: every 8 [place] 57 (eight) Medical hours as Branch needed. allopurinol 2018-04 Yes 100mg Take 100 U nivers 100 mg 2-27 mg by ity of tablet 23:33: mouth [place] 57 daily. Medical Branch aspirin 81 2018-04 Yes 81mg Take 81 mg U nivers mg chewable 2-27 by mouth ity of tablet 23:33: daily. [place] 57 [facility] bisacodyl 5 2018-04 Yes 5mg Take 5 mg U nivers mg EC 2-27 by mouth ity of tablet 23:33: once daily [place] 57 as needed Medical for Branch Constipati on. docusate 2018-04 Yes 100mg Take 100 Univ ers 100 mg 2-27 mg by ity of capsule 23:33: mouth [place] 57 daily. Medical Branch apixaban 2018-04 Yes 5mg Take 5 mg Univ ers (ELIQUIS) 2-27 by mouth 2 ity of 2.5 mg 23:33: (two) [place] tablet 57 times Medical daily. Branch ferrous 2018-04 Yes 325mg Take 325 Unive rs sulfate 325 2-27 mg by ity of mg (65 mg 23:33: mouth 3 [place] iron) EC 57 (three) Medical tablet times Branch daily with meals. gabapentin 2018-04 Yes 300mg Take 300 Un clara 300 mg 2-27 mg by ity of capsule 23:33: mouth 2 [place] 57 (two) Medical times Branch daily. Indication s: 2 capsules by mouth 2 times a day insulin 2018-04 Yes 20U inject 20 Unive rs glargine,hu 2-27 Units ity of m.rec.anlog 23:33: [place] the [place] ([place] 57 skin at Medical U-100 bedtime. Branch INSULIN SC) budesonide- 2018-04 Yes 2{puff} Inhale 2 Univers formoterol 2-27 Puffs 2 ity of (SYMBICORT) 23:33: (two) [place] 80-4.5 57 times Medical mcg/actuati daily. Branch on inhaler tamsulosin 2018-04 Yes Take by Uni vers 0.4 mg 24 2-27 mouth at ity of hr capsule 23:33: bedtime. [place] 57 Medical Branch torsemide 2018-04 Yes 20mg Take 20 mg Un clara 20 mg 2-27 by mouth 2 ity of tablet 23:33: (two) [place] 57 times Medical daily. Branch traZODone 2018-04 Yes 2722 100mg Take 100 Uni vers 100 mg 2-27 mg by ity of tablet 23:33: mouth at [place] 57 bedtime. Medical Indication Branch s: difficulty sleeping vitamin 2018-04 Yes 1000ug Take 1,000 Un clara B-12 2-27 mcg by ity of (VITAMIN 23:33: mouth [place] B-12) 1,000 57 daily. Medica l mcg tablet Branch ascorbic 2018-04 Yes 500mg Take 500 Univ ers acid, 2-27 mg by ity of vitamin C, 23:33: mouth 2 [place] (VITAMIN C[place] 57 (two) Medical 500 mg times Branch tablet daily. ondansetron 2018-04 Yes 4mg Take 4 mg U nivers 4 mg tablet 2-27 by mouth ity of 23:33: every 8 [place] 57 (eight) Medical hours as Branch needed. allopurinol 2018-04 Yes 100mg Take 100 U nivers 100 mg 2-27 mg by ity of tablet 23:33: mouth [place] 57 daily. Medical Branch aspirin 81 2018-04 Yes 81mg Take 81 mg U nivers mg chewable 2-27 by mouth ity of tablet 23:33: daily. [place] 57 [facility] Branch bisacodyl 5 2018-04 Yes 5mg Take 5 mg U nivers mg EC 2-27 by mouth ity of tablet 23:33: once daily [place] 57 as needed Medical for Branch Constipati on. docusate 2018-04 Yes 100mg Take 100 Univ ers 100 mg 2-27 mg by ity of capsule 23:33: mouth [place] 57 daily. Medical Branch apixaban 2018-04 Yes 5mg Take 5 mg Univ ers (ELIQUIS) 2-27 by mouth 2 ity of 2.5 mg 23:33: (two) [place] tablet 57 times Medical daily. Branch ferrous 2018-04 Yes 325mg Take 325 Unive rs sulfate 325 2-27 mg by ity of mg (65 mg 23:33: mouth 3 [place] iron) EC 57 (three) Medical tablet times Branch daily with meals. gabapentin 2018-04 Yes 300mg Take 300 Un clara 300 mg 2-27 mg by ity of capsule 23:33: mouth 2 [place] 57 (two) Medical times Branch daily. Indication s: 2 capsules by mouth 2 times a day insulin 2018- Yes 20U inject 20 Unive rs glargine,hu 2-27 Units ity of m.rec.anlog 23:33: [place] the [place] ([place] 57 skin at Medical U-100 bedtime. Branch INSULIN SC) budesonide- 2018-04 Yes 2{puff} Inhale 2 Univers formoterol 2-27 Puffs 2 ity of (SYMBICORT) 23:33: (two) [place] 80-4.5 57 times Medical mcg/actuati daily. Branch on inhaler tamsulosin 2018-04 Yes Take by Uni vers 0.4 mg 24 2-27 mouth at ity of hr capsule 23:33: bedtime. [place] 57 Medical Branch torsemide 2018-04 Yes 20mg Take 20 mg Un clara 20 mg 2-27 by mouth 2 ity of tablet 23:33: (two) [place] 57 times Medical daily. Branch traZODone 2018-04 Yes 2722 100mg Take 100 Uni vers 100 mg 2-27 mg by ity of tablet 23:33: mouth at [place] 57 bedtime. Medical Indication Branch s: difficulty sleeping vitamin 2018-04 Yes 1000ug Take 1,000 Un clara B-12 2-27 mcg by ity of (VITAMIN 23:33: mouth [place] B-12) 1,000 57 daily. Medica l mcg tablet Branch ascorbic 2018-04 Yes 500mg Take 500 Univ ers acid, 2-27 mg by ity of vitamin C, 23:33: mouth 2 [place] (VITAMIN C) 57 (two) Medical 500 mg times Branch tablet daily. ondansetron 2018-04 Yes 4mg Take 4 mg U nivers 4 mg tablet 2-27 by mouth ity of 23:33: every 8 [place] 57 (eight) Medical hours as Branch needed. allopurinol 2018-04 Yes 100mg Take 100 U nivers 100 mg 2-27 mg by ity of tablet 23:33: mouth [place] 57 daily. Medical Branch aspirin 81 2018-04 Yes 81mg Take 81 mg U nivers mg chewable 2-27 by mouth ity of tablet 23:33: daily. [place] 57 [facility] Branch bisacodyl 5 2018-04 Yes 5mg Take 5 mg U nivers mg EC 2-27 by mouth ity of tablet 23:33: once daily [place] 57 as needed Medical for Branch Constipati on. docusate 2018-04 Yes 100mg Take 100 Univ ers 100 mg 2-27 mg by ity of capsule 23:33: mouth [place] 57 daily. Medical Branch apixaban 2018-04 Yes 5mg Take 5 mg Univ ers (ELIQUIS) 2-27 by mouth 2 ity of 2.5 mg 23:33: (two) [place] tablet 57 times Medical daily. Branch ferrous 2018-04 Yes 325mg Take 325 Unive rs sulfate 325 2-27 mg by ity of mg (65 mg 23:33: mouth 3 [place] iron) EC 57 (three) Medical tablet times Branch daily with meals. gabapentin 2018-04 Yes 300mg Take 300 Un clara 300 mg 2-27 mg by ity of capsule 23:33: mouth 2 [place] 57 (two) Medical times Branch daily. Indication s: 2 capsules by mouth 2 times a day insulin 2018-04 Yes 20U inject 20 Unive rs glargine,hu 2-27 Units ity of m.rec.anlog 23:33: [place] the [place] ([place] 57 skin at Medical U-100 bedtime. Branch INSULIN SC) budesonide- 2018-04 Yes 2{puff} Inhale 2 Univers formoterol 2-27 Puffs 2 ity of (SYMBICORT) 23:33: (two) [place] 80-4.5 57 times Medical mcg/actuati daily. Branch on inhaler tamsulosin 2018-04 Yes Take by Uni vers 0.4 mg 24 2-27 mouth at ity of hr capsule 23:33: bedtime. [place] 57 Medical Branch torsemide 2018-04 Yes 20mg Take 20 mg Un clara 20 mg 2-27 by mouth 2 ity of tablet 23:33: (two) [place] 57 times Medical daily. Branch traZODone 2018-04 Yes 2722 100mg Take 100 Uni vers 100 mg 2-27 mg by ity of tablet 23:33: mouth at [place] 57 bedtime. Medical Indication Branch s: difficulty sleeping vitamin 2018- Yes 1000ug Take 1,000 Un clara B-12 2-27 mcg by ity of (VITAMIN 23:33: mouth [place] B-12) 1,000 57 daily. Medica l mcg tablet Branch ascorbic 2018-04 Yes 500mg Take 500 Univ ers acid, 2-27 mg by ity of vitamin C, 23:33: mouth 2 [place] (VITAMIN C) 57 (two) Medical 500 mg times Branch tablet daily. ondansetron 2018-04 Yes 4mg Take 4 mg U nivers 4 mg tablet 2-27 by mouth ity of 23:33: every 8 [place] 57 (eight) Medical hours as Branch needed. allopurinol 2018-04 Yes 100mg Take 100 U nivers 100 mg 2-27 mg by ity of tablet 17:33: mouth [place] 57 daily. Medical Branch aspirin 81 2018-04 Yes 81mg Take 81 mg U nivers mg chewable 2-27 by mouth ity of tablet 17:33: daily. [place] 57 [facility] Branch bisacodyl 5 2018-04 Yes 5mg Take 5 mg U nivers mg EC 2-27 by mouth ity of tablet 17:33: once daily [place] 57 as needed Medical for Branch Constipati on. docusate 2018-04 Yes 100mg Take 100 Univ ers 100 mg 2-27 mg by ity of capsule 17:33: mouth [place] 57 daily. Medical Branch apixaban 2018-04 Yes 5mg Take 5 mg Univ ers (ELIQUIS) 2-27 by mouth 2 ity of 2.5 mg 17:33: (two) [place] tablet 57 times Medical daily. Branch ferrous 2018-04 Yes 325mg Take 325 Unive rs sulfate 325 2-27 mg by ity of mg (65 mg 17:33: mouth 3 [place] iron) EC 57 (three) Medical tablet times Branch daily with meals. gabapentin 2018-04 Yes 300mg Take 300 Un clara 300 mg 2-27 mg by ity of capsule 17:33: mouth 2 [place] 57 (two) Medical times Branch daily. Indication s: 2 capsules by mouth 2 times a day insulin 2018-04 Yes 20U inject 20 Unive rs glargine,hu 2-27 Units ity of m.rec.anlog 17:33: [place] ([place] 57 skin at Medical U-100 bedtime. Branch INSULIN SC) budesonide- 2018-04 Yes 2{puff} Inhale 2 Univers formoterol 2-27 Puffs 2 ity of (SYMBICORT) 17:33: (two) [place] 80-4.5 57 times Medical mcg/actuati daily. Branch on inhaler tamsulosin 2018-04 Yes Take by Uni vers 0.4 mg 24 2-27 mouth at ity of hr capsule 17:33: bedtime. [place] 57 Medical Branch torsemide 2018-04 Yes 20mg Take 20 mg Un clara 20 mg 2-27 by mouth 2 ity of tablet 17:33: (two) [place] 57 times Medical daily. Branch traZODone 2018-04 Yes 2722 100mg Take 100 Uni vers 100 mg 2-27 mg by ity of tablet 17:33: mouth at [place] 57 bedtime. Medical Indication Branch s: difficulty sleeping vitamin 2018-04 Yes 1000ug Take 1,000 Un clara B-12 2-27 mcg by ity of (VITAMIN 17:33: mouth [place] B-12) 1,000 57 daily. Medica l mcg tablet Branch ascorbic 2018-04 Yes 500mg Take 500 Univ ers acid, 2-27 mg by ity of vitamin C, 17:33: mouth 2 [place] (VITAMIN C) 57 (two) Medical 500 mg times Branch tablet daily. ondansetron 2018-04 Yes 4mg Take 4 mg U nivers 4 mg tablet 2-27 by mouth ity of 17:33: every 8 [place] 57 (eight) Medical hours as Branch needed. No known No Univers medications ity of [facility] Immunizations Ordered Filled Immunization Date Status Comments [facility] e Immunization Name Name SARS-COV-2 COVID-19 2020-06-15 Completed Unive rsity of PFIZER VACCINE 00:00:00 [facility] SARS-COV-2 COVID-19 2020-06-15 Completed Unive rsity of PFIZER VACCINE 00:00:00 [facility] SARS-COV-2 COVID-19 2020-06-15 Completed Unive rsity of PFIZER VACCINE 00:00:00 [facility] SARS-COV-2 COVID-19 2020-05-15 Completed Unive rsity of PFIZER VACCINE 00:00:00 [facility] SARS-COV-2 COVID-19 2020-05-15 Completed Unive rsity of PFIZER VACCINE 00:00:00 [facility] SARS-COV-2 COVID-19 2020-05-15 Completed Unive rsity of PFIZER VACCINE 00:00:00 [facility] Procedures Procedure Date / Time Performed Performing Clinician Sour e REFERRAL- 2021-07-24 05:01:00 Doctor Unassigned, No [facility] [place] REQUEST/RESPONSE Name [facility] 2019-12-19 05:01:00 Doctor Unassigned, No Un [facility]vers[facility] [place] Name [facility] - OTHER 2019-10-19 05:01:00 Doctor Unassigned, No Un [facility] [place] Name [facility] 2019-10-05 05:01:00 Doctor Unassigned, No Un iversity of [place] Name Medical Branch [facility] - OTHER 2019-09-21 05:01:00 Doctor Unassigned, No Un [facility] [place] Name Medical Branch [facility] - OTHER 2019-09-08 05:01:00 Doctor Unassigned, No Un [facility] of [place] Name Medical Branch [facility] - OTHER 2019-06-30 05:01:00 Doctor Unassigned, No Un [facility]vers[facility] of [place] Name Medical Branch HOME [facility] - OTHER 2019-04-19 06:01:00 Doctor Unassigned, No Un iversity of [place] Name Medical Branch EXTERNAL PROVIDER 2018-12-10 05:01:00 Doctor Unassigned, No Univ ers[facility] of [place] RECORDS Name Medical Branch Encounters Start End Encounter Admission Attending Care Care Encounter Source Date/Time Date/Time Type Type Clinicians Facility Department ID 2021-08-12 Outpatient Herrera, [facility] [id number] [facility] 13:42:03 [facility] 2021-06-03 Outpatient Leslie, [facility] [id number] 15:14:02 [facility] 2021-05-20 Outpatient Leslie, [facility] [id number] [address] 13:41:03 [facility] 2021[facility]05-15 Outpatient Leslie, [facility] [id number] [facility] [address] 14:39:28 [facility] 2021-11-22 2021-11-22 Outpatient Blaire SAUCEDO [facility] [id number] Univers 14:00:00 14:00:00 [facility] [id number] [facility] 2021-08-19 2021-08-19 Outpatient R [facility] [id number] Univers 11:00:00 11:00:00 [id number] ity [facility] 2021-08-19 2021-08-19 Outpatient R [facility] [id number] Univers 11:00:00 [facility]00[facility] 2021-08-14 2021-08-14 ambulatory [facility] [id number] [facility] 2021-08-13 2021-08-13 ambulatory [facility] [id number] [facility] 2021-08-13 2021-08-13 ambulatory [facility] [id number] [facility] 2021-08-12 2021-08-12 [facility] [id number] Univers 15:00:00 16:11:28 [facility] 2021-08-12 2021-08-12 [facility] [id number] Univers 15:00:00 15:00:00 [facility] [id number] [facility] 2021-08-07 2021-08-07 ambulatory [facility]LMLC [facility] [id number] [facility] 00:00[facility]00 00[facility]00[facility]00 [facility] 2021-08-07 2021-08-07 ambulatory [facility]LMLC [facility] [id number] [facility] 00:00[facility]00 00[facility]00[facility]00 [facility] 2021-07-24 2021-07-24 Orders Doctor RAMILA 1.2.840.114 [id number] Univers 00:00:00 00:00:00 Only Unassigned, MICHAELLE [id number] ity of [facility][1] 4.2.7.2.686 Mark as [phone] [address] 2021-07-15 2021-07-15 ambulatory [facility]MLC [facility] [id number] [facility] 2021-07-12 2021-07-12 ambulatory [facility]ML[facility] [id number] [facility] 2021-07-05 2021-07-05 ambulatory [facility]ML[facility] [id number] [facility] 2021-06-07 2021-06-07 ambulatory [facility] [id number] [facility] 2021-05-21 2021-05-21 ambulatory [facility]ML[facility] [id number] [facility] 2021-05-20 2021-05-20 ambulatory [facility] [id number] [facility] 2021-05-13 2021-05-13 ambulatory [facility] [id number] [facility] 2020-06-27 2020-06-27 RAMILA Randall 1.2.840.114 [id number] 00:00:00 00:00:00 (Out) Georgi SOTOY [id number] [facility] 4.2.7.2.686 [id number] 2020-06-27 2020-06-27 RAMILA Randall 1.2.840.114 [id number] Univers 00:00:00 00:00:00 (Out) Georgi SOTOY 350.1.13.10 i [facility] [id number] Mark as [phone] [address] 2020-06-26 2020-06-26 Laboratory Lab, [facility] 1.2.840.114 [id number] 15:50:21 16:10:21 Only Fam Pob I Health 350.1.13.10 [place] 4.2.7.2.686 Professio [phone] nal [facility] Office [address] One 2020-06-26 2020-06-26 Laboratory Lab, [facility] Fam Pob I [facility] 1.2. 840.114 [id number] [facility] 15:50:21 16:10:21 Only Anene, [facility] [id number] ity of [place] 4.2.7.2.686 Mark as Professio [phone] Nd dical nal 044 Branch Office [address] One 2020-06-26 2020-06-26 Outpatient [facility] [id number] Univers 15:40:00 15:40:00 [id number] [facility] 2020-06-26 2020-06-26 Outpatient R PATRIZIA, [facility] [id number] Univers 15:40:00 15:40:00 ANN MARIE [facility] 2020-06-15 2020-06-15 Outpatient R [facility] [id number] Univers 14:10:00 14:10:00 [id number] [facility] 2020-06-15 2020-06-15 Outpatient R HIRAM [facility] [id number] Univers 14:10:00 14:10:00 MABEL [facility] 2020-06-08 2020-06-08 [facility] [id number] Univers 14:10:00 14:10:00 MABEL [id number] [facility] 2020-06-07 2020-06-07 Outpatient R [facility] [id number] Univers 14:00:00 14:00:00 [id number] [facility] 2020-06-05 2020-06-05 [facility] [id number] Univers 15:20:00 15:20:00 MBAEL [id number] [facility] 2020-05-15 2020-05-15 [facility] [id number] Univers 15:40:00 15:40:00 PARAM [id number] [facility] 2020-05-15 2020-05-15 [facility] [id number] Univers 15:40:00 15:40:00 PARAM [facility] 2020-05-13 2020-05-13 Patient Sade [facility] 1.2.840.114 [id number] 00:00:00 00:00:00 Outreach Param [place] [facility] [id number] [facility] 4.2.7.2.686 JIM [id number] 2020-05-13 2020-05-13 Patient Sade [facility] 1.2.840.114 [id number] Univers 00:00:00 00:00:00 Outreach Param PRIMARY 350.1.13.10 i ty of [facility] 4.2.7.2.686 [facility] [phone] Nd dical [address] [place] [address] 2020-03-28 2020-03-28 Laboratory Only, [facility] 1.2.840.114 [id number] 15:26:29 15:41:29 Only Test [place] 350.1.13.10 [place] 4.2.7.2.686 [place] [id number] [facility] 2020-03-28 2020-03-28 Laboratory Only, [facility] Test [facility] 1.2.840. 114 [id number] Univers 15:26:29 15:41:29 Only Gasper Barker 350.1.13.10 ity of [place] 4.2.7.2.686 [facility] s [place] [phone] [address] 2020-03-28 2020-03-28 Outpatient R [facility] [id number] Univers 15:15:00 15:15:00 [id number] ity [facility] 2020-03-28 2020-03-28 Outpatient R [facility] [id number] Univers 15:15:00 15:15:00 ity [facility] 2020-03-13 2020-03-13 Outpatient [facility] [id number] Univers 09:00:00 09:00:00 FREDDY [id number] [facility] 2020-03-13 2020-03-13 Outpatient [facility] [id number] Univers 09:00:00 09:00:00 FREDDY ity [facility] 2019-12-19 2019-12-19 Outpatient [facility] [id number] Univers 00:00:00 00:00:00 ity [facility] 2019-12-19 2019-12-19 Orders Doctor MCGRATH 1.2.840.114 [id number] 00:00:00 00:00:00 Only Unassigned, MICHAELLE 350.1.13.10 [place] [facility] 4.2.7.2.686 [id number] 2019-12-19 2019-12-19 Orders Doctor RAMILA 1.2.840.114 [id number] Univers 00:00:00 00:00:00 Only Unassigned, MICHAELLE 350.1.13.10 ity of [place] [facility] 4.2.7.2.686 Mark as [phone] [facility] 00[address] [place] 2019-10-25 2019-10-25 Outpatient [facility] [id number] Univers 00:00:00 00:00:00 ity of [facility] 2019-10-25 2019-10-25 Outpatient R [facility] [id number] Univers 00:00:00 00:00:00 ity of [facility] 2019-10-25 2019-10-25 Telephone RAMILA [id number] Univers 00:00:00 00:00:00 Camila BRASWELL 350.1.13.10 it y of [facility] 4.2.7.2.686 Mark as [phone] [facility] 019 [place] 2019-10-25 2019-10-25 Telephone RAMILA [id number] 00:00:00 00:00:00 Camilakimi BRASWELL 350.1.13.10 [place] [id number] 2019-10-21 2019-10-21 Outpatient R [facility] [id number] Univers 19:00:00 19:00:00 [id number] ity of [facility] 2019-10-21 2019-10-21 Outpatient R MARINE [facility] [id number] Univers 19:00:00 19:00:00 BECKIE ity of [facility] 2019-10-21 2019-10-21 Laboratory Only, Adc Test [facility] 1.2.840. 114 [id number] Univers 07:15:41 07:15:49 Only Beckie Hawthorne 350.1.13.10 ity [facility] 42.7.2.686 [facility] [phone] [facility] 353 [place] 2019-10-21 2019-10-21 Laboratory Only, Adc [facility] 1.2.840.114 [id number] 07:15:41 07:15:49 Only Test [place] 350.1.13.10 [place] 4.2.7.2.686 [place] [id number] [id number] 2019-10-19 2019-10-19 Orders Doctor RAMILA 1.2.840.114 [id number] Univers 00:00:00 00:00:00 Only Unassigned, MICHAELLE 350.1.13.10 ity of [place] [facility] 4.2.7.2.686 Mark as [id number] [address] 2019-10-19 2019-10-19 Orders Doctor MCGRATH 1.2.840.114 [id number] 00:00:00 00:00:00 Only Unassigned, MICHAELLE 350.1.13.10 [place] [facility] 4.2.7.2.686 [id number] 2019-10-18 2019-10-18 Outpatient [facility] [id number] Univers 00:00:00 00:00:00 ity of [facility] 2019-10-05 2019-10-05 Orders Doctor MCGRATH 1.2.840.114 [id number] Univers 00:00:00 00:00:00 Only Unassigned, MICHAELLE 350.1.13.10 ity of [place] [facility] 4.2.7.2.686 Mark as [phone] [address] 2019-10-05 2019-10-05 Orders Doctor MCGRATH 1.2.840.114 [id number] 00:00:00 00:00:00 Only Unassigned, MICHAELLE 350.1.13.10 [place] [facility] 4.2.7.2.686 [id number] 2019-09-21 2019-09-21 Outpatient [facility] [id number] Univers 00:00:00 00:00:00 ity of [facility] 2019-09-21 2019-09-21 Outpatient R [facility] [id number] Univers 00:00:00 00:00:00 ity of [facility] 2019-09-21 2019-09-21 Orders Doctor RAMILA Hardy.2.840.114 [id number] Univers 00:00:00 00:00:00 Only Unassigned, MICHAELLE 350.1.13.10 ity of [place] [facility] 4.2.7.2.686 Mark as [phone] [address] 2019-09-21 2019-09-21 Orders Doctor RAMILA Hardy.2.840.114 [id number] 00:00:00 00:00:00 Only Unassigned, MICHAELLE 350.1.13.10 [place] [facility] 4.2.7.2.686 [id number] 2019-09-15 2019-09-15 Outpatient [facility] [id number] Univers 00:00:00 00:00:00 ity of [facility] 2019-09-08 2019-09-08 Orders Doctor RAMILA Hardy.2.840.114 [id number] Univers 00:00:00 00:00:00 Only Unassigned, MICHAELLE 350.1.13.10 ity of [place] [facility] 4.2.7.2.686 Mark as [id number] [address] 2019-09-08 2019-09-08 Orders Doctor RAMILA Hardy.2.840.114 [id number] 00:00:00 00:00:00 Only Unassigned, MICHAELLE 350.1.13.10 [place] [facility] 4.2.7.2.686 [id number] 2019-08-17 2019-08-17 Outpatient [facility] [facility] [id number] [facility] 00:00:00 00:00:00 [facility] of [facility] 2019-06-30 2019-06-30 Outpatient [facility] [id number] [facility] 00:00:00 00:00:00 ity of [facility] 2019-06-30 2019-06-30 Orders Doctor RAMILA [id number] [facility] 00:00:00 00:00:00 Only Unassigned, MICHAELLE [id number] ity of [facility] [id number] Mark as [id number] [id number] 2019-06-30 2019-06-30 Orders Doctor RAMILA [id number] 00:00:00 00:00:00 Only Unassigned, MICHAELLE [id number] [facility] [id number] 2019-04-19 2019-04-19 Orders Doctor RAMILA [id number] [facility] 00:00:00 00:00:00 Only Unassigned, MICHAELLE [id number] [facility] of [facility] [id number] Mark as [id number] 2019-04-19 2019-04-19 Orders Doctor RAMILA [id number] 00:00:00 00:00:00 Only Unassigned, MICHAELLE [id number] [facility] [id number] 2019-04-09 2019-04-15 Inpatient X [facility] [id number] [facility] 20:51:51 17:15:00 SARAH vanessa [facility] 2019-04-05 2019-04-05 Outpatient R LEONEL VARNER [facility] [id number] [facility] 09:42:57 23:59:00 LEONEL VARNER [facility] 2018-12-10 2018-12-10 Orders Doctor RAMILA [id number] [facility] 00:00:00 00:00:00 Only Unassigned, MICHAELLE [id number] [facility] of [facility] [id number] Mark as [id number] 2018-12-10 2018-12-10 Orders Doctor RAMILA [id number] 00:00:00 00:00:00 Only Unassigned, MICHAELLE [id number] [facility] [id number] Results This patient has no known results.
[2021-08-17 02:15] LABS: Absolute Lymphocytes (CBC) 1.1 K/uL (0.7-4.9); Hematocrit 32.8 % (39.6-49.0); Lymphocytes % 7.9 % (15.3-44.8); MPV 9.5 fL (7.6-11.3); RBC Red Blood Cell Count 3.47 M/uL (4.33-5.43)
[2021-08-17] MEDS ORDERED: MORPHINE 4 MG/ML SYR ONE (02:18)
[2021-08-17] MEDS ORDERED: FAMOTIDINE 20 MG/2 ML VIAL IV ONE (02:18)
[2021-08-17] MEDS ORDERED: ONDANSETRON 4 MG/2 ML VIAL ONE (02:18)
[2021-08-17 02:38] LABS: Albumin 3.2 g/dL (3.4-5.0); Bilirubin Total 0.3 mg/dL (0.2-1.0); Potassium 4.7 mmol/L (3.5-5.1); Protein, Total 7.2 g/dL (6.4-8.2)
[2021-08-17 03:36] LABS: Protime INR 1.22
[2021-08-17] MEDS ORDERED: MAGNES/ALUMIN/SIMET 30ML UCUP ONE (04:44)
[2021-08-17] MEDS ORDERED: LIDOCAINE VISCOUS 2% SOLN 15 ML UDC ONE (04:44)
[2021-08-17 05:14] LABS: Urine Blood Negative (Negative); Urine Glucose Negative (Negative); Urine Protein Negative (Negative); Urine Specific Gravity 1.015 (1.005-1.030); Urine pH 5.5 (5.0-7.0)
[2021-08-17] MEDS ORDERED: CEFTRIAXONE 1000 MG/VIAL ONE (05:25)
[2021-08-17] MEDS ORDERED: NA CHLORIDE 0.9% 50 ML ONE (05:25)
[2021-08-17 06:00] LABS: Urine Bacteria 20-50 /HPF (NONE SEEN); Urine Mucus 2+ /HPF (NONE SEEN); Urine RBC <5 /HPF (NONE SEEN)
--- NOTE | 2021-08-17 06:42 | ER ---
Nurse's Notes [facility] Name: Rudi Moreno Age: 76 yrs Sex: Male : 1945 Arrival Date: 08/17/2021 Time: 00:58 Bed 16 Private MD: Diagnosis: Abdominal pain, Generalized;UTI/ Urinary tract infection, site not specified Presentation: 08/17 01:33 Chief complaint: Patient states: abdominal pain for about a month with diarrhea, feel ke1 bloated but i was able to handle the pain until now. Coronavirus screen: Vaccine status: Patient reports receiving the 2nd dose of the covid vaccine. Ebola Screen: No symptoms or risks identified at this time. Initial Sepsis Screen: Does the patient meet any 2 criteria? No. Patient's initial sepsis screen is negative. Does the patient have a suspected source of infection? No. Patient's initial sepsis screen is negative. Risk Assessment: Do you want to hurt yourself or someone else? Patient reports no desire to harm self or others. Onset of symptoms was July 17, 2021. 01:33 Method Of Arrival: Wheelchair [facility] 01:33 Acuity: ERICK 3 ke1 Triage Assessment: 02:34 General: Appears in no apparent distress. Behavior is appropriate for age. Pain: ke1 Complains of pain in abdomen Pain currently is 4 out of 10 on a pain scale. GI: Abdomen is distended, Bowel sounds present X 4 quads. Abd is soft and non tender X 4 quads. Reports diarrhea. Historical: - Allergies: 01:36 Iodine; ke1 - PMHx: 01:36 Anemia; Atrial Fib; CHF; COPD; Diabetes - IDDM; Gout; Hypothyroidism; PAD; ke1 - Immunization history:: Client reports receiving the 2nd dose of the Covid vaccine. - Social history:: Smoking status: Patient/guardian denies using tobacco, the patient reports quitting approximately 21 years ago. Screenin:30 Abuse screen: Denies threats or abuse. Nutritional screening: No deficits noted. ke1 Tuberculosis screening: No symptoms or risk factors identified. Fall Risk No fall in past 12 months (0 pts). No secondary diagnosis (0 pts). IV access (20 points). Ambulatory Aid- Furniture (30 pts.). Gait- Weak (10 pts.). Mental Status- Oriented to own ability (0 pts). Total Clark Fall Scale indicates High Risk Score (45 or more points). Fall prevention measures have been instituted. Side Rails Up X 2 Frequent Obs/Assessments Occuring Family Present and informed to notify staff if the need to leave the bedside. Assessment: 02:35 Reassessment: Patient on bedside commode, having loose stool. ke1 04:30 Pain: Complains of pain in abdomen Pain currently is 7 out of 10 on a pain scale. ke1 Vital Signs: 01:33 BP 154 / 59; Pulse 86; Resp 18; Temp 97.9; Pulse Ox 100% on 2 lpm NC; Weight 84.37 kg; ke1 Height 5 ft. 7 in. (170.18 cm); Pain 8/10; 03:30 BP 107 / 53; Pulse 70; Resp 18; Pulse Ox 93% on 2 lpm NC; ke1 05:15 BP 106 / 93; Pulse 71; Resp 18; Pulse Ox 100% on 2 lpm NC; Pain 3/10; ke1 06:21 BP 118 / 64; Pulse 70; Resp 18; Pulse Ox 92% on 2 lpm NC; ke1 01:33 Body Mass Index 29.13 (84.37 kg, 170.18 cm) ke1 ED Course: 00:58 Patient arrived in ED. kz 01:20 Eveline Luis, DAYANARA is Primary Nurse. ke1 01:34 Wilmer Holliday MD is Attending Physician. [facility] 01:36 Triage completed. ke1 01:40 Arm band placed on right wrist. ke1 01:40 Bed in low position. Call light in reach. bedside commode. ke1 02:00 Inserted saline lock: 20 gauge in left antecubital area, using aseptic technique. ke1 03:13 CT Abd/Pelvis - Without Contrast In Process Unspecified. EDMS 06:23 No provider procedures requiring assistance completed. ke1 06:55 IV discontinued. ke1 Administered Medications: 02:48 Drug: morphine 4 mg Route: IVP; Site: left antecubital; ke1 04:44 Follow up: Response: Marked relief of symptoms ke1 02:48 Drug: Zofran (Ondansetron) 4 mg Route: IVP; Site: left antecubital; ke1 03:00 Follow up: Response: Marked relief of symptoms ke1 02:48 Drug: Pepcid (famotidine) 20 mg Route: IVP; Site: left antecubital; ke1 03:00 Follow up: Response: Marked relief of symptoms ke1 04:43 Drug: GI Cocktail without - (Maalox Suspension 30 ml, Lidocaine Liquid 2 % 15 ke1 ml) Route: PO; 05:16 Follow up: Response: Marked relief of symptoms ke1 05:24 Drug: Rocephin (cefTRIAXone) 1 grams Route: IV; Rate: per protocol; Site: left ke1 antecubital; 05:45 Follow up: IV Status: Completed infusion ke1 Output: 01:45 Stool: 1 (Loose Stool) ; Total: 0ml. ke1 Outcome: 06:41 Discharge ordered by . [facility] 06:55 Discharged to home via wheelchair. ke1 06:55 Condition: good 06:55 Discharge instructions given to patient. 06:57 Patient left the ED. ke1 Signatures: Dispatcher [employer] EDMS Wilmer Holliday MD MD [facility] Eveline Luis RN RN 1 Mari Abdalla Corrections: (The following items were deleted from the chart) 01:37 01:36 Allergies: NKA; ke1 ke1 01:46 01:33 BP 154 / 59; Resp 18bpm; Pulse Ox 100% 2 lpm Nasal Cannula; Temp 97.9F; 84.37 kg; ke1 Height 5 ft. 7 in.; BMI: 29.1; Pain 8/10; ke1
--- NOTE | 2021-08-17 06:42 | EDPHYS ---
Physician Documentation [facility] Name: Rudi Moreno Age: 76 yrs Sex: Male : 1945 Arrival Date: 08/17/2021 Time: 00:58 Bed 16 Private MD: ED Physician Wilmer Holliday HPI: 08/17 01:50 This 76 yrs old Male presents to ER via Wheelchair with complaints of Abdominal Pain. mh7 01:50 The patient presents with abdominal pain in the epigastric area, in the periumbilical mh7 area. Onset: The symptoms/episode began/occurred last night, at 20:00. The symptoms do not radiate. Associated signs and symptoms: Pertinent negatives: nausea, vomiting, and diarrhea, anorexia, blood in stools, chest pain, constipation, diarrhea, dysuria, fever, headache, hematuria, palpitations, shortness of breath, testicular pain, vomiting, vomiting blood. The symptoms are described as intermittent, vague, waxing/waning. Modifying factors: The symptoms are alleviated by nothing, the symptoms are aggravated by nothing. Severity of pain: At its worst the pain was moderate last night, in the emergency department the pain has improved moderately. Historical: - Allergies: 01:36 Iodine; ke1 - PMHx: 01:36 Anemia; Atrial Fib; CHF; COPD; Diabetes - IDDM; Gout; Hypothyroidism; PAD; ke1 - Immunization history:: Client reports receiving the 2nd dose of the Covid vaccine. - Social history:: Smoking status: Patient/guardian denies using tobacco, the patient reports quitting approximately 21 years ago. ROS: 01:50 Constitutional: Negative for fever, chills, and weight loss, Eyes: Negative for injury, mh7 pain, redness, and discharge, ENT: Negative for injury, pain, and discharge, Neck: Negative for injury, pain, and swelling, Cardiovascular: Negative for chest pain, palpitations, and edema, Respiratory: Negative for shortness of breath, cough, wheezing, and pleuritic chest pain. 01:50 Back: Negative for injury and pain, : Negative for injury, bleeding, discharge, and swelling, MS/Extremity: Negative for injury and deformity, Skin: Negative for injury, rash, and discoloration, Neuro: Negative for headache, weakness, numbness, tingling, and seizure, Psych: Negative for depression, anxiety, suicide ideation, homicidal ideation, and hallucinations, Allergy/Immunology: Negative for hives, rash, and allergies, Endocrine: Negative for neck swelling, polydipsia, polyuria, polyphagia, and marked weight changes, Hematologic/Lymphatic: Negative for swollen nodes, abnormal bleeding, and unusual bruising. Exam: 01:50 Constitutional: This is a well developed, well nourished patient who is awake, alert, mh7 and in no acute distress. Head/Face: Normocephalic, atraumatic. Eyes: Pupils equal round and reactive to light, extra-ocular motions intact. Lids and lashes normal. Conjunctiva and sclera are non-icteric and not injected. Cornea within normal limits. Periorbital areas with no swelling, redness, or edema. Neck: Trachea midline, no thyromegaly or masses palpated, and no cervical lymphadenopathy. Supple, full range of motion without nuchal rigidity, or vertebral point tenderness. No Meningismus. Chest/axilla: Normal chest wall appearance and motion. Nontender with no deformity. No lesions are appreciated. Cardiovascular: Regular rate and rhythm with a normal S1 and S2. No gallops, murmurs, or rubs. Normal PMI, no JVD. No pulse deficits. Respiratory: Lungs have equal breath sounds bilaterally, clear to auscultation and percussion. No rales, rhonchi or wheezes noted. No increased work of breathing, no retractions or nasal flaring. 01:50 Back: No spinal tenderness. No costovertebral tenderness. Full range of motion. Skin: Warm, dry with normal turgor. Normal color with no rashes, no lesions, and no evidence of cellulitis. MS/ Extremity: Pulses equal, no cyanosis. Neurovascular intact. Full, normal range of motion. Neuro: Awake and alert, GCS 15, oriented to person, place, time, and situation. Cranial nerves II-XII grossly intact. Motor strength 5/5 in all extremities. Sensory grossly intact. Cerebellar exam normal. Normal gait. Psych: Awake, alert, with orientation to person, place and time. Behavior, mood, and affect are within normal limits. 01:50 Abdomen/GI: Inspection: obese Bowel sounds: normal, in all quadrants, Palpation: mild abdominal tenderness, in the epigastric area and umbilical area, mass, is not appreciated, rebound tenderness, is not appreciated, voluntary guarding, is not appreciated, involuntary guarding, is not appreciated, no appreciated organomegaly, Rectal exam: the exam is deferred, because of patient request, Indicators: McBurney's point is not tender, Miranda's sign is negative, Rovsing's sign is negative, Obturator sign is negative, Psoas sign is negative, Liver: no appreciated palpable abnormalities, Hernia: not appreciated. Vital Signs: 01:33 BP 154 / 59; Pulse 86; Resp 18; Temp 97.9; Pulse Ox 100% on 2 lpm NC; Weight 84.37 kg; ke1 Height 5 ft. 7 in. (170.18 cm); Pain 8/10; 03:30 BP 107 / 53; Pulse 70; Resp 18; Pulse Ox 93% on 2 lpm NC; ke1 05:15 BP 106 / 93; Pulse 71; Resp 18; Pulse Ox 100% on 2 lpm NC; Pain 3/10; ke1 06:21 BP 118 / 64; Pulse 70; Resp 18; Pulse Ox 92% on 2 lpm NC; ke1 01:33 Body Mass Index 29.13 (84.37 kg, 170.18 cm) ke1 MDM: 06:39 Differential diagnosis: appendicitis, bowel obstruction, diverticulitis, gastritis, mh7 gastroesophageal reflux disease, non-specific abd pain, pancreatitis, Peptic Ulcer Disease, urinary tract infection. Data reviewed: vital signs, nurses notes, old medical records, lab test result(s), cardiac enzymes, CBC, electrolytes, urinalysis, EKG, radiologic studies, CT scan. Data interpreted: Pulse oximetry: on room air is 96 %. Interpretation: normal. Counseling: I had a detailed discussion with the patient and/or guardian regarding: the historical points, exam findings, and any diagnostic results supporting the discharge/admit diagnosis, lab results, radiology results, the need for outpatient follow up, to return to the emergency department if symptoms worsen or persist or if there are any questions or concerns that arise at home. Response to treatment: the patient's symptoms have resolved after treatment, the patient's blood pressure is in an acceptable range, mental status has returned to baseline, the patient no longer shows bradycardia, the patient is not short of breath, the patient is not tachycardic, the patient's pain is gone, the patient's temperature has normalized. 06:41 Patient medically screened. [facility] 08/17 01:36 Order name: CBC with Diff; Complete Time: 02:17 [facility] 08/17 01:36 Order name: CMP; Complete Time: 03:45 [facility] 08/17 01:36 Order name: Lipase; Complete Time: 04:14 [facility] 08/17 01:47 Order name: Protime (+inr); Complete Time: 04:14 [facility] 08/17 01:47 Order name: Ptt, Activated; Complete Time: 04:14 [facility] 08/17 05:14 Order name: Urine Dipstick-Ancillary; Complete Time: 05:15 EDMS 08/17 01:48 Order name: CT Abd/Pelvis - Without Contrast [facility] 08/17 05:16 Order name: Troponin High Sensitivity; Complete Time: 06:24 [facility] 08/17 05:16 Order name: Urine Microscopic Only; Complete Time: 06:05 [facility] 08/17 05:16 Order name: Urine Culture [facility] 08/17 01:36 Order name: IV Saline Lock; Complete Time: 02:49 [facility] 08/17 01:36 Order name: Labs collected and sent; Complete Time: 02:49 [facility] 08/17 01:36 Order name: Urine Dipstick-Ancillary (obtain specimen); Complete Time: 05:14 [facility] 08/17 01:47 Order name: EKG; Complete Time: 01:48 [facility] 08/17 01:47 Order name: EKG - Nurse/Tech; Complete Time: 03:08 [facility] Administered Medications: 02:48 Drug: morphine 4 mg Route: IVP; Site: left antecubital; ke1 04:44 Follow up: Response: Marked relief of symptoms ke1 02:48 Drug: Zofran (Ondansetron) 4 mg Route: IVP; Site: left antecubital; ke1 03:00 Follow up: Response: Marked relief of symptoms ke1 02:48 Drug: Pepcid (famotidine) 20 mg Route: IVP; Site: left antecubital; ke1 03:00 Follow up: Response: Marked relief of symptoms ke1 04:43 Drug: GI Cocktail without - (Maalox Suspension 30 ml, Lidocaine Liquid 2 % 15 ke1 ml) Route: PO; 05:16 Follow up: Response: Marked relief of symptoms ke1 05:24 Drug: Rocephin (cefTRIAXone) 1 grams Route: IV; Rate: per protocol; Site: left ke1 antecubital; 05:45 Follow up: IV Status: Completed infusion ke1 Disposition Summary: 08/17/21 06:41 Discharge Ordered Location: Home [facility] Problem: new [facility] Symptoms: have improved [facility] Condition: Stable [facility] Diagnosis - Abdominal pain, Generalized [facility] - UTI/ Urinary tract infection, site not specified [facility] Followup: [facility] - With: Private Physician - When: 1 - 2 days - Reason: Worsening of condition, Recheck today's complaints, Continuance of care, Re-evaluation by your physician Discharge Instructions: - Discharge Summary Sheet [facility] - Urinary Tract Infection, Adult, [id number] [facility] - Abdominal Pain, Adult, [id number] [facility] Forms: - Medication Reconciliation Form [facility] - Thank You Letter [facility] - Antibiotic Education [facility] - Prescription Opioid Use [facility] Prescriptions: - Cephalexin 500 mg Oral Capsule - take 1 capsule by ORAL route every 12 hours for 7 days; 14 capsule; Refills: 0, [facility] Product Selection Permitted - Pepcid 20 mg Oral Tablet - take 1 tablet by ORAL route every 12 hours for 5 days; 10 tablet; Refills: 0, [facility] Product Selection Permitted - dicyclomine 10 mg Oral Capsule - take 1 capsule by ORAL route 4 times per day As needed; 20 capsule; Refills: 0, [facility] Product Selection Permitted Signatures: Dispatcher [employer] EDWA Joseph Lemus, FOAMING MACHINE OPERATOR-C FOAMING MACHINE OPERATOR-Cla1 Wilmer Holliday MD MD [facility] Eveline Luis RN RN ke1 Corrections: (The following items were deleted from the chart) 01:37 01:36 Allergies: NKA; ke1 ke1
[2021-08-17 07:15] VITALS: TEMP 97.9
[2021-08-17 07:19] VITALS: BP 118/64; O2SAT 92
--- NOTE | 2021-08-17 09:44 | EKG ---
Test Date: 2021-08-17 Test Time: 03:03:52 Promotions Executive: DEONTE MEASUREMENT RESULTS: Intervals: Rate: 70 [place]: QRSD: 150 QT: 456 QTc: 492 [place]: P: [place]: QRS: 265 T: 81 INTERPRETIVE STATEMENTS: Ventricular-paced rhythm Abnormal ECG Compared to ECG 03/28/2017 16:47:34 No significant changes Electronically Signed On 08-17-21 09:43:28 CDT by Junior Ballard
--- NOTE | 2021-08-17 20:08 | RAD REPORT ---
EXAM DESCRIPTION: CT - Abdomen Pelvis Wo Contrast - 08/17/2021 6:41 am CLINICAL HISTORY: 76 years, Male, Abdominal pain, acute COMPARISON: None. TECHNIQUE: Multiple transaxial tomograms of the abdomen and pelvis were performed from the lung base s to the symphysis pubis 5 mm slice thickness at 5 mm interval reconstruction, without administration of IV and oral contrast. Multiplanar reformats in the sagittal and coronal plane were generated and reviewed. This exam was performed according to our departmental dose-optimization protocol, which includes auto mated exposure control, adjustment of the mA and/or kV according to patient size and/or use of iterat luna reconstruction technique. FINDINGS: The lack of IV and oral contrast limits evaluation of solid organs, subtle lesions cannot be excluded. The lung bases demonstrate to be clear. There is a multilead pacemaker in place. Grossly the unopacified liver, gallbladder, pancreas, spleen and adrenal glands demonstrate to be wit hin normal limits, no significant focal lesions were identified. The kidneys demonstrate mild cortical thinning perhaps just the possibility of chronic kidney disease . There is no evidence for nephrolithiasis and/or hydronephrosis. No focal masses were demonstrat ed. The ureters displays normal appearance with normal caliber, no hydroureter was seen. Grossly the unopacified stomach, small bowel and large bowel demonstrate to be within normal limits. There is no evidence for bowel dilatation/or free air. The appendix is normal. The urinary bladder was partially distended with no gross abnormalities. The prostate gland demonstra te to be within normal limits. The aorta demonstrate atherosclerotic disease extending into the aorti c bifurcation. Probable stenting on the right common iliac artery. There is no retroperitoneal lymp hadenopathy. There is no evidence for ascites. The bone windows demonstrate mild bony osteopenia. D egenerative disc disease L2-L4. There is interbody fusion at L4/L5. There is superior plate compressi on deformity at L1. IMPRESSION: No evidence of nephrolithiasis and/or hydronephrosis. Mild cortical thinning of the kidneys perhaps just the possibility of chronic kidney disease. Atherosclerotic disease of the aorta. Osteopenia with degenerative disc disease L2-L4 and interbody fusion at L4/L5. Superior plate lurdes krishna deformity at L1. Electronically signed by: Jay King MD 08/17/2021 3:19 AM CDT Due to temporary technical issues with the PACS/Fluency reporting system, reports are being signed by the in house radiologists without review as a courtesy to insure prompt reporting. The interpreting radiologist is fully responsible for the content of the report.
== END 2021-08-17 06:57 | disposition home or self-care (01) ==
LOC: ER 00:55
DX: N39.0 Urinary tract infection, site not specified (principal); E11.9 Type 2 diabetes mellitus without complications; J44.9 Chronic obstructive pulmonary disease, unspecified; I50.9 Heart failure, unspecified; Z91.048 Other nonmedicinal substance allergy status
CPT/HCPCS: 96365; 93005; 87088; 85025; 87086; 36415; 85610; 85730; 84484; 83690; 80053; 74176; 96375; 99284; J2405; J3490; 81003; 81015

== ENCOUNTER 2021-08-25 19:02 | Emergency (ER) | payer OTHER ==
--- OUTSIDE RECORDS SUMMARY | 2021-08-25 19:07 | XMS REPORT | Continuity of Care Document ---
:1945 Author Organization [facility] t Address [address] [place] [address] Care Team Providers Name Role Phone PHAN [...] Expiration Date Clarissa alatorre MEDICARE PART A [id number] 2007 \T\ B 00:00:00 MEDICAID [place] [id number] 2007 00:00:00 Advance Directives Directive Decision Effective Termination Comments Source Date Date Healthcare Agents on N/A NPI: 1831 FileNameRelationshipHealthcare [id number] Agent RelationshipCommunicationWalter AndersonInscription House Health CenterHealth Care [phone] (Mobile) [email or web address] [phone] (Mobile) Reymundo AndersonOtherSecond [facility] [phone] (Mobile) Problems Condition Condition Condition Status Onset Resolution Last Treating Co mments Source Name Details Category Date Date Treatment Clinician Date Hyperkalem Hyperkalem Disease Active 2018-04 N PI:183 ia ia 2 [id number] 00:00: 00 Decreased Decreased Disease Active NPI :183 activity activity 10-10 739249 1 tolerance tolerance 00:00: 00 Allergies, Adverse Reactions, Alerts Allergy Allergy Status Severity Reaction(s) Onset Inactive Treating Comm ents Source Name Type Date Date Clinician NO KNOWN Drug Active NPI:183 ALLERGIE Class [id number] S Social History Social Habit Start Date Stop Date Quantity Comments Source Exposure to 2021-08-02 2021-08-12 Not sure NPI:[id number] 1 SARS-CoV-2 00:00:00 14:36:00 (event) Alcohol intake 2019-04-26 2019-04-26 Ex-drinker NPI:[id number] 00:00:00 00:00:00 (finding) Tobacco use and 2019-02-22 2019-02-22 Never used NPI:[id number] 74823 exposure 00:00:00 00:00:00 History of 2001-02-18 Cigarette Smoker NPI:1831 [id number] tobacco use 00:00:00 [birth year] NPI:[id number] 85278 00:00:00 00:00:00 Smoking Status Start Date Stop Date Source Unknown if ever smoked NPI:21608 09079 Former smoker 2019-02-22 00:00:00 2019-02-22 00:00:00 NPI:[id number] [id number] Medications Ordered Filled Start Stop Current Ordering Indication Dosage Frequency Signature Comments Components Source Medication Medication Date Date Medication? Clinician (SIG) Name Name allopurinol 2018-04 Yes 100mg Take 100 N PI:183 100 mg 2-27 mg by [id number] tablet 23:33: mouth 57 daily. aspirin 81 2018-04 Yes 81mg Take 81 mg N PI:183 mg chewable 2-27 by mouth 1318 781 tablet 23:33: daily. 57 bisacodyl 5 2018-04 Yes 5mg Take 5 mg N PI:183 mg EC 2-27 by mouth [id number] tablet 23:33: once daily 57 as needed for Constipati on. docusate 2018-04 Yes 100mg Take 100 NPI: 183 100 mg 2-27 mg by [id number] capsule 23:33: mouth 57 daily. apixaban 2018-04 Yes 5mg Take 5 mg NPI: 183 (ELIQUIS) 2-27 by mouth 2 1318 781 2.5 mg 23:33: (two) tablet 57 times daily. ferrous 2018-04 Yes 325mg Take 325 NPI:1 83 sulfate 325 2-27 mg by [id number] mg (65 mg 23:33: mouth 3 iron) EC 57 (three) tablet times daily with meals. gabapentin 2018-04 Yes 300mg Take 300 [employer] I:183 300 mg 2-27 mg by [id number] capsule 23:33: mouth 2 57 (two) times daily. Indication s: 2 capsules by mouth 2 times a day insulin 2019- Yes 20U inject 20 NPI:1 83 glargine,hu 2-27 Units [id number] m.rec.anlog 23:33: under the (LANTUS 57 skin at U-100 bedtime. INSULIN SC) budesonide- 2018-04 Yes 2{puff} Inhale 2 NPI:183 formoterol 2-27 Puffs 2 317113 1 (SYMBICORT) 23:33: (two) 80-4.5 57 times mcg/actuati daily. on inhaler tamsulosin 2018- Yes Take by NPI :183 0.4 mg 24 2-27 mouth at [id number] 1 hr capsule 23:33: bedtime. 57 torsemide 2018- Yes 20mg Take 20 mg [employer] I:183 20 mg 2-27 by mouth 2 [id number] tablet 23:33: (two) 57 times daily. traZODone 2018- Yes 2722 100mg Take 100 NPI :183 100 mg 2-27 mg by [id number] tablet 23:33: mouth at 57 bedtime. Indication s: difficulty sleeping vitamin 2018- Yes 1000ug Take 1,000 [employer] I:183 B-12 2-27 mcg by [id number] (VITAMIN 23:33: mouth B-12) 1,000 57 daily. mcg tablet ascorbic 2018- Yes 500mg Take 500 NPI: 183 acid, 2-27 mg by [id number] vitamin C, 23:33: mouth 2 (VITAMIN C) 57 (two) 500 mg times tablet daily. ondansetron 2018-04 Yes 4mg Take 4 mg N PI:183 4 mg tablet 2-27 by mouth 1318 781 23:33: every 8 57 (eight) hours as needed. allopurinol 2018-04 Yes 100mg Take 100 N PI:183 100 mg 2-27 mg by [id number] tablet 23:33: mouth 57 daily. aspirin 81 2018-04 Yes 81mg Take 81 mg N PI:183 mg chewable 2-27 by mouth 1318 781 tablet 23:33: daily. 57 bisacodyl 5 2018-04 Yes 5mg Take 5 mg N PI:183 mg EC 2-27 by mouth [id number] tablet 23:33: once daily 57 as needed for Constipati on. docusate 2018-04 Yes 100mg Take 100 NPI: 183 100 mg 2-27 mg by [id number] capsule 23:33: mouth 57 daily. apixaban 2018-04 Yes 5mg Take 5 mg NPI: 183 (ELIQUIS) 2-27 by mouth 2 1318 781 2.5 mg 23:33: (two) tablet 57 times daily. ferrous 2018 Yes 325mg Take 325 NPI:1 83 sulfate 325 2-27 mg by [id number] mg (65 mg 23:33: mouth 3 iron) EC 57 (three) tablet times daily with meals. gabapentin 2018-04 Yes 300mg Take 300 [employer] I:183 300 mg 2-27 mg by [id number] capsule 23:33: mouth 2 57 (two) times daily. Indication s: 2 capsules by mouth 2 times a day insulin 2019 Yes 20U inject 20 NPI:1 83 glargine,hu 2-27 Units [id number] .rec.anlog 23:33: under the (LANTUS 57 skin at U-100 bedtime. INSULIN SC) budesonide- 2018-04 Yes 2{puff} Inhale 2 NPI:183 formoterol 2-27 Puffs 2 127801 1 (SYMBICORT) 23:33: (two) 80-4.5 57 times mcg/actuati daily. on inhaler tamsulosin 2018-04 Yes Take by NPI :183 0.4 mg 24 2-27 mouth at 329290 1 hr capsule 23:33: bedtime. 57 torsemide 2018-04 Yes 20mg Take 20 mg [employer] I:183 20 mg 2-27 by mouth 2 [id number] tablet 23:33: (two) 57 times daily. traZODone 2018-04 Yes 2722 100mg Take 100 NPI :183 100 mg 2-27 mg by [id number] tablet 23:33: mouth at 57 bedtime. Indication s: difficulty sleeping vitamin 2018-04 Yes 1000ug Take 1,000 [employer] I:183 B-12 2-27 mcg by [id number] (VITAMIN 23:33: mouth B-12) 1,000 57 daily. mcg tablet ascorbic 2018-04 Yes 500mg Take 500 NPI: 183 acid, 2-27 mg by [id number] vitamin C, 23:33: mouth 2 (VITAMIN C) 57 (two) 500 mg times tablet daily. ondansetron 2018-04 Yes 4mg Take 4 mg N PI:183 4 mg tablet 2-27 by mouth 1318 781 23:33: every 8 57 (eight) hours as needed. allopurinol 2018-04 Yes 100mg Take 100 N PI:183 100 mg 2-27 mg by [id number] tablet 23:33: mouth 57 daily. aspirin 81 2018-04 Yes 81mg Take 81 mg N PI:183 mg chewable 2-27 by mouth 1318 781 tablet 23:33: daily. 57 bisacodyl 5 2018-04 Yes 5mg Take 5 mg N PI:183 mg EC 2-27 by mouth [id number] tablet 23:33: once daily 57 as needed for Constipati on. docusate 2018-04 Yes 100mg Take 100 NPI: 183 100 mg 2-27 mg by [id number] capsule 23:33: mouth 57 daily. apixaban 2018-04 Yes 5mg Take 5 mg NPI: 183 (ELIQUIS) 2-27 by mouth 2 1318 781 2.5 mg 23:33: (two) tablet 57 times daily. ferrous 2018-04 Yes 325mg Take 325 NPI:1 83 sulfate 325 2-27 mg by [id number] mg (65 mg 23:33: mouth 3 iron) EC 57 (three) tablet times daily with meals. gabapentin 2018-04 Yes 300mg Take 300 [employer] I:183 300 mg 2-27 mg by [id number] capsule 23:33: mouth 2 57 (two) times daily. Indication s: 2 capsules by mouth 2 times a day insulin 2018-04 Yes 20U inject 20 NPI:1 83 glargine,hu 2-27 Units [id number] m.rec.anlog 23:33: under the (LANTUS 57 skin at U-100 bedtime. INSULIN SC) budesonide- 2018-04 Yes 2{puff} Inhale 2 NPI:183 formoterol 2-27 Puffs 2 312547 1 (SYMBICORT) 23:33: (two) 80-4.5 57 times mcg/actuati daily. on inhaler tamsulosin 2018-04 Yes Take by NPI :183 0.4 mg 24 2-27 mouth at 272777 1 hr capsule 23:33: bedtime. 57 torsemide 2018-04 Yes 20mg Take 20 mg [employer] I:183 20 mg 2-27 by mouth 2 [id number] tablet 23:33: (two) 57 times daily. traZODone 2018-04 Yes 2722 100mg Take 100 NPI :183 100 mg 2-27 mg by [id number] tablet 23:33: mouth at 57 bedtime. Indication s: difficulty sleeping vitamin 2018-04 Yes 1000ug Take 1,000 [employer] I:183 B-12 2-27 mcg by [id number] (VITAMIN 23:33: mouth B-12) 1,000 57 daily. mcg tablet ascorbic 2018-04 Yes 500mg Take 500 NPI: 183 acid, 2-27 mg by [id number] vitamin C, 23:33: mouth 2 (VITAMIN C) 57 (two) 500 mg times tablet daily. ondansetron 2018-04 Yes 4mg Take 4 mg N PI:183 4 mg tablet 2-27 by mouth 1318 781 23:33: every 8 57 (eight) hours as needed. allopurinol 2018-04 Yes 100mg Take 100 N PI:183 100 mg 2-27 mg by [id number] tablet 23:33: mouth 57 daily. aspirin 81 2018-04 Yes 81mg Take 81 mg N PI:183 mg chewable 2-27 by mouth 1318 781 tablet 23:33: daily. 57 bisacodyl 5 2018-04 Yes 5mg Take 5 mg N PI:183 mg EC 2-27 by mouth [id number] tablet 23:33: once daily 57 as needed for Constipati on. docusate 2018-04 Yes 100mg Take 100 NPI: 183 100 mg 2-27 mg by [id number] capsule 23:33: mouth 57 daily. apixaban 2018-04 Yes 5mg Take 5 mg NPI: 183 (ELIQUIS) 2-27 by mouth 2 1318 781 2.5 mg 23:33: (two) tablet 57 times daily. ferrous 2018-04 Yes 325mg Take 325 NPI:1 83 sulfate 325 2-27 mg by [id number] mg (65 mg 23:33: mouth 3 iron) EC 57 (three) tablet times daily with meals. gabapentin 2018-04 Yes 300mg Take 300 [employer] I:183 300 mg 2-27 mg by [id number] capsule 23:33: mouth 2 57 (two) times daily. Indication s: 2 capsules by mouth 2 times a day insulin 2018- Yes 20U inject 20 NPI:1 83 glargine,hu 2-27 Units [id number] .rec.anlog 23:33: under the (LANTUS 57 skin at U-100 bedtime. INSULIN SC) budesonide- 2018-04 Yes 2{puff} Inhale 2 NPI:183 formoterol 2-27 Puffs 2 129413 1 (SYMBICORT) 23:33: (two) 80-4.5 57 times mcg/actuati daily. on inhaler tamsulosin 2018-04 Yes Take by NPI :183 0.4 mg 24 2-27 mouth at 703775 1 hr capsule 23:33: bedtime. 57 torsemide 2018-04 Yes 20mg Take 20 mg [employer] I:183 20 mg 2-27 by mouth 2 [id number] tablet 23:33: (two) 57 times daily. traZODone 2018-04 Yes 2722 100mg Take 100 NPI :183 100 mg 2-27 mg by [id number] tablet 23:33: mouth at 57 bedtime. Indication s: difficulty sleeping vitamin 2018- Yes 1000ug Take 1,000 [employer] I:183 B-12 2-27 mcg by [id number] (VITAMIN 23:33: mouth B-12) 1,000 57 daily. mcg tablet ascorbic 2018- Yes 500mg Take 500 NPI: 183 acid, 2-27 mg by [id number] vitamin C, 23:33: mouth 2 (VITAMIN C) 57 (two) 500 mg times tablet daily. ondansetron 2018-04 Yes 4mg Take 4 mg N PI:183 4 mg tablet 2-27 by mouth 1318 781 23:33: every 8 57 (eight) hours as needed. allopurinol 2018-04 Yes 100mg Take 100 N PI:183 100 mg 2-27 mg by [id number] tablet 23:33: mouth 57 daily. aspirin 81 2018-04 Yes 81mg Take 81 mg N PI:183 mg chewable 2-27 by mouth 1318 781 tablet 23:33: daily. 57 bisacodyl 5 2018-04 Yes 5mg Take 5 mg N PI:183 mg EC 2-27 by mouth [id number] tablet 23:33: once daily 57 as needed for Constipati on. docusate 2018-04 Yes 100mg Take 100 NPI: 183 100 mg 2-27 mg by [id number] capsule 23:33: mouth 57 daily. apixaban 2018-04 Yes 5mg Take 5 mg NPI: 183 (ELIQUIS) 2-27 by mouth 2 1318 781 2.5 mg 23:33: (two) tablet 57 times daily. ferrous 2018-04 Yes 325mg Take 325 NPI:1 83 sulfate 325 2-27 mg by [id number] mg (65 mg 23:33: mouth 3 iron) EC 57 (three) tablet times daily with meals. gabapentin 2018-04 Yes 300mg Take 300 [employer] I:183 300 mg 2-27 mg by [id number] capsule 23:33: mouth 2 57 (two) times daily. Indication s: 2 capsules by mouth 2 times a day insulin 2018-04 Yes 20U inject 20 NPI:1 83 glargine,hu 2-27 Units [id number] rec.anlog 23:33: under the (LANTUS 57 skin at U-100 bedtime. INSULIN SC) budesonide- 2018-04 Yes 2{puff} Inhale 2 NPI:183 formoterol 2-27 Puffs 2 368012 1 (SYMBICORT) 23:33: (two) 80-4.5 57 times mcg/actuati daily. on inhaler tamsulosin 2018-04 Yes Take by NPI :183 0.4 mg 24 2-27 mouth at 930370 1 hr capsule 23:33: bedtime. 57 torsemide 2018-04 Yes 20mg Take 20 mg [employer] I:183 20 mg 2-27 by mouth 2 [id number] tablet 23:33: (two) 57 times daily. traZODone 2018-04 Yes 2722 100mg Take 100 NPI :183 100 mg 2-27 mg by [id number] tablet 23:33: mouth at 57 bedtime. Indication s: difficulty sleeping vitamin 2018-04 Yes 1000ug Take 1,000 [employer] I:183 B-12 2-27 mcg by [id number] (VITAMIN 23:33: mouth B-12) 1,000 57 daily. mcg tablet ascorbic 2018-04 Yes 500mg Take 500 NPI: 183 acid, 2-27 mg by [id number] vitamin C, 23:33: mouth 2 (VITAMIN C) 57 (two) 500 mg times tablet daily. ondansetron 2018-04 Yes 4mg Take 4 mg N PI:183 4 mg tablet 2-27 by mouth 1318 781 23:33: every 8 57 (eight) hours as needed. allopurinol 2018-04 Yes 100mg Take 100 N PI:183 100 mg 2-27 mg by [id number] tablet 23:33: mouth 57 daily. aspirin 81 2018-04 Yes 81mg Take 81 mg N PI:183 mg chewable 2-27 by mouth 1318 781 tablet 23:33: daily. 57 bisacodyl 5 2018-04 Yes 5mg Take 5 mg N PI:183 mg EC 2-27 by mouth [id number] tablet 23:33: once daily 57 as needed for Constipati on. docusate 2018-04 Yes 100mg Take 100 NPI: 183 100 mg 2-27 mg by [id number] capsule 23:33: mouth 57 daily. apixaban 2018-04 Yes 5mg Take 5 mg NPI: 183 (ELIQUIS) 2-27 by mouth 2 1318 781 2.5 mg 23:33: (two) tablet 57 times daily. ferrous 2019 Yes 325mg Take 325 NPI:1 83 sulfate 325 2-27 mg by [id number] mg (65 mg 23:33: mouth 3 iron) EC 57 (three) tablet times daily with meals. gabapentin 2018-04 Yes 300mg Take 300 [employer] I:183 300 mg 2-27 mg by [id number] capsule 23:33: mouth 2 57 (two) times daily. Indication s: 2 capsules by mouth 2 times a day insulin 2018- Yes 20U inject 20 NPI:1 83 glargine,hu 2-27 Units [id number] m.rec.anlog 23:33: under the (LANTUS 57 skin at U-100 bedtime. INSULIN SC) budesonide- 2018-04 Yes 2{puff} Inhale 2 NPI:183 formoterol 2-27 Puffs 2 308517 1 (SYMBICORT) 23:33: (two) 80-4.5 57 times mcg/actuati daily. on inhaler tamsulosin 2018-04 Yes Take by NPI :183 0.4 mg 24 2-27 mouth at 807443 1 hr capsule 23:33: bedtime. 57 torsemide 2018-04 Yes 20mg Take 20 mg [employer] I:183 20 mg 2-27 by mouth 2 [id number] tablet 23:33: (two) 57 times daily. traZODone 2018-04 Yes 2722 100mg Take 100 NPI :183 100 mg 2-27 mg by [id number] tablet 23:33: mouth at 57 bedtime. Indication s: difficulty sleeping vitamin 2019- Yes 1000ug Take 1,000 [employer] I:183 B-12 2-27 mcg by [id number] (VITAMIN 23:33: mouth B-12) 1,000 57 daily. mcg tablet ascorbic 2018-04 Yes 500mg Take 500 NPI: 183 acid, 2-27 mg by [id number] vitamin C, 23:33: mouth 2 (VITAMIN C) 57 (two) 500 mg times tablet daily. ondansetron 2018-04 Yes 4mg Take 4 mg N PI:183 4 mg tablet 2-27 by mouth 1318 781 23:33: every 8 57 (eight) hours as needed. allopurinol 2018-04 Yes 100mg Take 100 N PI:183 100 mg 2-27 mg by [id number] tablet 23:33: mouth 57 daily. aspirin 81 2018-04 Yes 81mg Take 81 mg N PI:183 mg chewable 2-27 by mouth 1318 781 tablet 23:33: daily. 57 bisacodyl 5 2018-04 Yes 5mg Take 5 mg N PI:183 mg EC 2-27 by mouth [id number] tablet 23:33: once daily 57 as needed for Constipati on. docusate 2018-04 Yes 100mg Take 100 NPI: 183 100 mg 2-27 mg by [id number] capsule 23:33: mouth 57 daily. apixaban 2018-04 Yes 5mg Take 5 mg NPI: 183 (ELIQUIS) 2-27 by mouth 2 1318 781 2.5 mg 23:33: (two) tablet 57 times daily. ferrous 2019 Yes 325mg Take 325 NPI:1 83 sulfate 325 2-27 mg by [id number] mg (65 mg 23:33: mouth 3 iron) EC 57 (three) tablet times daily with meals. gabapentin 2018-04 Yes 300mg Take 300 [employer] I:183 300 mg 2-27 mg by [id number] capsule 23:33: mouth 2 57 (two) times daily. Indication s: 2 capsules by mouth 2 times a day insulin 2018-04 Yes 20U inject 20 NPI:1 83 glargine,hu 2-27 Units [id number] m.rec.anlog 23:33: under the (LANTUS 57 skin at U-100 bedtime. INSULIN SC) budesonide- 2018-04 Yes 2{puff} Inhale 2 NPI:183 formoterol 2-27 Puffs 2 979816 1 (SYMBICORT) 23:33: (two) 80-4.5 57 times mcg/actuati daily. on inhaler tamsulosin 2018-04 Yes Take by NPI :183 0.4 mg 24 2-27 mouth at 416283 1 hr capsule 23:33: bedtime. 57 torsemide 2018-04 Yes 20mg Take 20 mg [employer] I:183 20 mg 2-27 by mouth 2 [id number] tablet 23:33: (two) 57 times daily. traZODone 2018-04 Yes 2722 100mg Take 100 NPI :183 100 mg 2-27 mg by [id number] tablet 23:33: mouth at 57 bedtime. Indication s: difficulty sleeping vitamin 2019- Yes 1000ug Take 1,000 [employer] I:183 B-12 2-27 mcg by [id number] (VITAMIN 23:33: mouth B-12) 1,000 57 daily. mcg tablet ascorbic 2018-04 Yes 500mg Take 500 NPI: 183 acid, 2-27 mg by [id number] vitamin C, 23:33: mouth 2 (VITAMIN C) 57 (two) 500 mg times tablet daily. ondansetron 2018-04 Yes 4mg Take 4 mg N PI:183 4 mg tablet 2-27 by mouth 1318 781 23:33: every 8 57 (eight) hours as needed. allopurinol 2018-04 Yes 100mg Take 100 N PI:183 100 mg 2-27 mg by [id number] tablet 23:33: mouth 57 daily. aspirin 81 2018-04 Yes 81mg Take 81 mg N PI:183 mg chewable 2-27 by mouth 1318 781 tablet 23:33: daily. 57 bisacodyl 5 2018-04 Yes 5mg Take 5 mg N PI:183 mg EC 2-27 by mouth [id number] tablet 23:33: once daily 57 as needed for Constipati on. docusate 2018-04 Yes 100mg Take 100 NPI: 183 100 mg 2-27 mg by [id number] capsule 23:33: mouth 57 daily. apixaban 2018-04 Yes 5mg Take 5 mg NPI: 183 (ELIQUIS) 2-27 by mouth 2 1318 781 2.5 mg 23:33: (two) tablet 57 times daily. ferrous 2018-04 Yes 325mg Take 325 NPI:1 83 sulfate 325 2-27 mg by [id number] mg (65 mg 23:33: mouth 3 iron) EC 57 (three) tablet times daily with meals. gabapentin 2018-04 Yes 300mg Take 300 [employer] I:183 300 mg 2-27 mg by [id number] capsule 23:33: mouth 2 57 (two) times daily. Indication s: 2 capsules by mouth 2 times a day insulin 2018-04 Yes 20U inject 20 NPI:1 83 glargine,hu 2-27 Units [id number] [facility].anlog 23:33: under the (LANTUS 57 skin at U-100 bedtime. INSULIN SC) budesonide- 2018-04 Yes 2{puff} Inhale 2 NPI:183 formoterol 2-27 Puffs 2 249493 1 (SYMBICORT) 23:33: (two) 80-4.5 57 times mcg/actuati daily. on inhaler tamsulosin 2018-04 Yes Take by NPI :183 0.4 mg 24 2-27 mouth at 087949 1 hr capsule 23:33: bedtime. 57 torsemide 2018-04 Yes 20mg Take 20 mg [employer] I:183 20 mg 2-27 by mouth 2 [id number] tablet 23:33: (two) 57 times daily. traZODone 2018-04 Yes 2722 100mg Take 100 NPI :183 100 mg 2-27 mg by [id number] tablet 23:33: mouth at 57 bedtime. Indication s: difficulty sleeping vitamin 2018-04 Yes 1000ug Take 1,000 [employer] I:183 B-12 2-27 mcg by [id number] (VITAMIN 23:33: mouth B-12) 1,000 57 daily. mcg tablet ascorbic 2018-04 Yes 500mg Take 500 NPI: 183 acid, 2-27 mg by [id number] vitamin C, 23:33: mouth 2 (VITAMIN C) 57 (two) 500 mg times tablet daily. ondansetron 2018-04 Yes 4mg Take 4 mg N PI:183 4 mg tablet 2-27 by mouth 1318 781 23:33: every 8 57 (eight) hours as needed. allopurinol 2018-04 Yes 100mg Take 100 N PI:183 100 mg 2-27 mg by [id number] tablet 23:33: mouth 57 daily. aspirin 81 2018-04 Yes 81mg Take 81 mg N PI:183 mg chewable 2-27 by mouth 1318 781 tablet 23:33: daily. 57 bisacodyl 5 2018-04 Yes 5mg Take 5 mg N PI:183 mg EC 2-27 by mouth [id number] tablet 23:33: once daily 57 as needed for Constipati on. docusate 2019 Yes 100mg Take 100 NPI: 183 100 mg 2-27 mg by [id number] capsule 23:33: mouth 57 daily. apixaban 2019 Yes 5mg Take 5 mg NPI: 183 (ELIQUIS) 2-27 by mouth 2 1318 781 2.5 mg 23:33: (two) tablet 57 times daily. ferrous 2019 Yes 325mg Take 325 NPI:1 83 sulfate 325 2-27 mg by [id number] mg (65 mg 23:33: mouth 3 iron) EC 57 (three) tablet times daily with meals. gabapentin 2019 Yes 300mg Take 300 [employer] I:183 300 mg 2-27 mg by [id number] capsule 23:33: mouth 2 57 (two) times daily. Indication s: 2 capsules by mouth 2 times a day insulin 2019- Yes 20U inject 20 NPI:1 83 glargine,hu 2-27 Units [id number] .rec.anlog 23:33: under the (LANTUS 57 skin at U-100 bedtime. INSULIN SC) budesonide- 2018-04 Yes 2{puff} Inhale 2 NPI:183 formoterol 2-27 Puffs 2 181939 1 (SYMBICORT) 23:33: (two) 80-4.5 57 times mcg/actuati daily. on inhaler tamsulosin 2018-04 Yes Take by NPI :183 0.4 mg 24 2-27 mouth at 186496 1 hr capsule 23:33: bedtime. 57 torsemide 2018-04 Yes 20mg Take 20 mg [employer] I:183 20 mg 2-27 by mouth 2 [id number] tablet 23:33: (two) 57 times daily. traZODone 2018- Yes 2722 100mg Take 100 NPI :183 100 mg 2-27 mg by [id number] tablet 23:33: mouth at 57 bedtime. Indication s: difficulty sleeping vitamin 2019- Yes 1000ug Take 1,000 [employer] I:183 B-12 2-27 mcg by [id number] (VITAMIN 23:33: mouth B-12) 1,000 57 daily. mcg tablet ascorbic 2018- Yes 500mg Take 500 NPI: 183 acid, 2-27 mg by [id number] vitamin C, 23:33: mouth 2 (VITAMIN C) 57 (two) 500 mg times tablet daily. ondansetron 2018-04 Yes 4mg Take 4 mg N PI:183 4 mg tablet 2-27 by mouth 1318 781 23:33: every 8 57 (eight) hours as needed. allopurinol 2018-04 Yes 100mg Take 100 N PI:183 100 mg 2-27 mg by 8705347 tablet 23:33: mouth 57 daily. aspirin 81 2018-04 Yes 81mg Take 81 mg N PI:183 mg chewable 2-27 by mouth 1318 781 tablet 23:33: daily. 57 bisacodyl 5 2018-04 Yes 5mg Take 5 mg N PI:183 mg EC 2-27 by mouth [id number] tablet 23:33: once daily 57 as needed for Constipati on. docusate 2018-04 Yes 100mg Take 100 NPI: 183 100 mg 2-27 mg by [id number] capsule 23:33: mouth 57 daily. apixaban 2018-04 Yes 5mg Take 5 mg NPI: 183 (ELIQUIS) 2-27 by mouth 2 1318 781 2.5 mg 23:33: (two) tablet 57 times daily. ferrous 2018-04 Yes 325mg Take 325 NPI:1 83 sulfate 325 2-27 mg by [id number] mg (65 mg 23:33: mouth 3 iron) EC 57 (three) tablet times daily with meals. gabapentin 2018-04 Yes 300mg Take 300 [employer] I:183 300 mg 2-27 mg by [id number] capsule 23:33: mouth 2 57 (two) times daily. Indication s: 2 capsules by mouth 2 times a day insulin 2018- Yes 20U inject 20 NPI:1 83 glargine,hu 2-27 Units [id number] m.rec.anlog 23:33: under the (LANTUS 57 skin at U-100 bedtime. INSULIN SC) budesonide- 2018-04 Yes 2{puff} Inhale 2 NPI:183 formoterol 2-27 Puffs 2 531031 1 (SYMBICORT) 23:33: (two) 80-4.5 57 times mcg/actuati daily. on inhaler tamsulosin 2018-04 Yes Take by NPI :183 0.4 mg 24 2-27 mouth at 786167 1 hr capsule 23:33: bedtime. 57 torsemide 2018-04 Yes 20mg Take 20 mg [employer] I:183 20 mg 2-27 by mouth 2 1145533 tablet 23:33: (two) 57 times daily. traZODone 2018- Yes 2722 100mg Take 100 NPI :183 100 mg 2-27 mg by [id number] tablet 23:33: mouth at 57 bedtime. Indication s: difficulty sleeping vitamin 2019- Yes 1000ug Take 1,000 [employer] I:183 B-12 2-27 mcg by 9353403 (VITAMIN 23:33: mouth B-12) 1,000 57 daily. mcg tablet ascorbic 2018- Yes 500mg Take 500 NPI: 183 acid, 2-27 mg by 8311737 vitamin C, 23:33: mouth 2 (VITAMIN C) 57 (two) 500 mg times tablet daily. ondansetron 2018-04 Yes 4mg Take 4 mg N PI:183 4 mg tablet 2-27 by mouth 1318 781 23:33: every 8 57 (eight) hours as needed. allopurinol 2018-04 Yes 100mg Take 100 N PI:183 100 mg 2-27 mg by [id number] tablet 23:33: mouth 57 daily. aspirin 81 2018-04 Yes 81mg Take 81 mg N PI:183 mg chewable 2-27 by mouth 1318 781 tablet 23:33: daily. 57 bisacodyl 5 2018-04 Yes 5mg Take 5 mg N PI:183 mg EC 2-27 by mouth [id number] tablet 23:33: once daily 57 as needed for Constipati on. docusate 2018-04 Yes 100mg Take 100 NPI: 183 100 mg 2-27 mg by [id number] capsule 23:33: mouth 57 daily. apixaban 2019- Yes 5mg Take 5 mg NPI: 183 (ELIQUIS) 2-27 by mouth 2 1318 781 2.5 mg 23:33: (two) tablet 57 times daily. ferrous 2019 Yes 325mg Take 325 NPI:1 83 sulfate 325 2-27 mg by 2149957 mg (65 mg 23:33: mouth 3 iron) EC 57 (three) tablet times daily with meals. gabapentin 2018-04 Yes 300mg Take 300 [employer] I:183 300 mg 2-27 mg by [id number] capsule 23:33: mouth 2 57 (two) times daily. Indication s: 2 capsules by mouth 2 times a day insulin 2018-04 Yes 20U inject 20 NPI:1 83 glargine,hu 2-27 Units [id number] rec.anlog 23:33: under the (LANTUS 57 skin at U-100 bedtime. INSULIN SC) budesonide- 2018-04 Yes 2{puff} Inhale 2 NPI:183 formoterol 2-27 Puffs 2 [id number] 1 (SYMBICORT) 23:33: (two) 80-4.5 57 times mcg/actuati daily. on inhaler tamsulosin 2018-04 Yes Take by NPI :183 0.4 mg 24 2-27 mouth at [id number] 1 hr capsule 23:33: bedtime. 57 torsemide 2018-04 Yes 20mg Take 20 mg [employer] I:183 20 mg 2-27 by mouth 2 [id number] tablet 23:33: (two) 57 times daily. traZODone 2018-04 Yes 2722 100mg Take 100 NPI :183 100 mg 2-27 mg by [id number] tablet 23:33: mouth at 57 bedtime. Indication s: difficulty sleeping vitamin 2018-04 Yes 1000ug Take 1,000 [employer] I:183 B-12 2-27 mcg by [id number] (VITAMIN 23:33: mouth B-12) 1,000 57 daily. mcg tablet ascorbic 2018-04 Yes 500mg Take 500 NPI: 183 acid, 2-27 mg by [id number] vitamin C, 23:33: mouth 2 (VITAMIN C) 57 (two) 500 mg times tablet daily. ondansetron 2018-04 Yes 4mg Take 4 mg N PI:183 4 mg tablet 2-27 by mouth 1318 781 23:33: every 8 57 (eight) hours as needed. allopurinol 2018-04 Yes 100mg Take 100 N PI:183 100 mg 2-27 mg by [id number] tablet 23:33: mouth 57 daily. aspirin 81 2018-04 Yes 81mg Take 81 mg N PI:183 mg chewable 2-27 by mouth 1318 781 tablet 23:33: daily. 57 bisacodyl 5 2018-04 Yes 5mg Take 5 mg N PI:183 mg EC 2-27 by mouth [id number] tablet 23:33: once daily 57 as needed for Constipati on. docusate 2018-04 Yes 100mg Take 100 NPI: 183 100 mg 2-27 mg by [id number] capsule 23:33: mouth 57 daily. apixaban 2018-04 Yes 5mg Take 5 mg NPI: 183 (ELIQUIS) 2-27 by mouth 2 1318 781 2.5 mg 23:33: (two) tablet 57 times daily. ferrous 2019 Yes 325mg Take 325 NPI:1 83 sulfate 325 2-27 mg by [id number] mg (65 mg 23:33: mouth 3 iron) EC 57 (three) tablet times daily with meals. gabapentin 2018-04 Yes 300mg Take 300 [employer] I:183 300 mg 2-27 mg by [id number] capsule 23:33: mouth 2 57 (two) times daily. Indication s: 2 capsules by mouth 2 times a day insulin 2018-04 Yes 20U inject 20 NPI:1 83 glargine,hu 2-27 Units [id number] .rec.anlog 23:33: under the (LANTUS 57 skin at U-100 bedtime. INSULIN SC) budesonide- 2018-04 Yes 2{puff} Inhale 2 NPI:183 formoterol 2-27 Puffs 2 [id number] 1 (SYMBICORT) 23:33: (two) 80-4.5 57 times mcg/actuati daily. on inhaler tamsulosin 2018-04 Yes Take by NPI :183 0.4 mg 24 2-27 mouth at 721062 1 hr capsule 23:33: bedtime. 57 torsemide 2018-04 Yes 20mg Take 20 mg [employer] I:183 20 mg 2-27 by mouth 2 [id number] tablet 23:33: (two) 57 times daily. traZODone 2018-04 Yes 2722 100mg Take 100 NPI :183 100 mg 2-27 mg by [id number] tablet 23:33: mouth at 57 bedtime. Indication s: difficulty sleeping vitamin 2018- Yes 1000ug Take 1,000 [employer] I:183 B-12 2-27 mcg by [id number] (VITAMIN 23:33: mouth B-12) 1,000 57 daily. mcg tablet ascorbic 2018- Yes 500mg Take 500 NPI: 183 acid, 2-27 mg by [id number] vitamin C, 23:33: mouth 2 (VITAMIN C) 57 (two) 500 mg times tablet daily. ondansetron 2018-04 Yes 4mg Take 4 mg N PI:183 4 mg tablet 2-27 by mouth 1318 781 23:33: every 8 57 (eight) hours as needed. allopurinol 2018-04 Yes 100mg Take 100 N PI:183 100 mg 2-27 mg by [id number] tablet 23:33: mouth 57 daily. aspirin 81 2018-04 Yes 81mg Take 81 mg N PI:183 mg chewable 2-27 by mouth 1318 781 tablet 23:33: daily. 57 bisacodyl 5 2018-04 Yes 5mg Take 5 mg N PI:183 mg EC 2-27 by mouth [id number] tablet 23:33: once daily 57 as needed for Constipati on. docusate 2018-04 Yes 100mg Take 100 NPI: 183 100 mg 2-27 mg by [id number] capsule 23:33: mouth 57 daily. apixaban 2018-04 Yes 5mg Take 5 mg NPI: 183 (ELIQUIS) 2-27 by mouth 2 1318 781 2.5 mg 23:33: (two) tablet 57 times daily. ferrous 2018-04 Yes 325mg Take 325 NPI:1 83 sulfate 325 2-27 mg by [id number] mg (65 mg 23:33: mouth 3 iron) EC 57 (three) tablet times daily with meals. gabapentin 2018-04 Yes 300mg Take 300 [employer] I:183 300 mg 2-27 mg by [id number] capsule 23:33: mouth 2 57 (two) times daily. Indication s: 2 capsules by mouth 2 times a day insulin 2018-04 Yes 20U inject 20 NPI:1 83 glargine,hu 2-27 Units [id number] .rec.anlog 23:33: under the (LANTUS 57 skin at U-100 bedtime. INSULIN SC) budesonide- 2018-04 Yes 2{puff} Inhale 2 NPI:183 formoterol 2-27 Puffs 2 [id number] 1 (SYMBICORT) 23:33: (two) 80-4.5 57 times mcg/actuati daily. on inhaler tamsulosin 2018-04 Yes Take by NPI :183 0.4 mg 24 2-27 mouth at 183409 1 hr capsule 23:33: bedtime. 57 torsemide 2018-04 Yes 20mg Take 20 mg [employer] I:183 20 mg 2-27 by mouth 2 [id number] tablet 23:33: (two) 57 times daily. traZODone 2019- Yes 2722 100mg Take 100 NPI :183 100 mg 2-27 mg by [id number] tablet 23:33: mouth at 57 bedtime. Indication s: difficulty sleeping vitamin 2019- Yes 1000ug Take 1,000 [employer] I:183 B-12 2-27 mcg by [id number] (VITAMIN 23:33: mouth B-12) 1,000 57 daily. mcg tablet ascorbic 2019- Yes 500mg Take 500 NPI: 183 acid, 2-27 mg by [id number] vitamin C, 23:33: mouth 2 (VITAMIN C) 57 (two) 500 mg times tablet daily. ondansetron 2018-04 Yes 4mg Take 4 mg N PI:183 4 mg tablet 2-27 by mouth 1318 781 23:33: every 8 57 (eight) hours as needed. allopurinol 2018- Yes 100mg Take 100 N PI:183 100 mg 2-27 mg by [id number] tablet 17:33: mouth 57 daily. aspirin 81 2018-04 Yes 81mg Take 81 mg N PI:183 mg chewable 2-27 by mouth 1318 781 tablet 17:33: daily. 57 bisacodyl 5 2018-04 Yes 5mg Take 5 mg N PI:183 mg EC 2-27 by mouth [id number] tablet 17:33: once daily 57 as needed for Constipati on. docusate 2018-04 Yes 100mg Take 100 NPI: 183 100 mg 2-27 mg by [id number] capsule 17:33: mouth 57 daily. apixaban 2018-04 Yes 5mg Take 5 mg NPI: 183 (ELIQUIS) 2-27 by mouth 2 1318 781 2.5 mg 17:33: (two) tablet 57 times daily. ferrous 2019 Yes 325mg Take 325 NPI:1 83 sulfate 325 2-27 mg by [id number] mg (65 mg 17:33: mouth 3 iron) EC 57 (three) tablet times daily with meals. gabapentin 2019- Yes 300mg Take 300 [employer] I:183 300 mg 2-27 mg by [id number] capsule 17:33: mouth 2 57 (two) times daily. Indication s: 2 capsules by mouth 2 times a day insulin 2019- Yes 20U inject 20 NPI:1 83 glargine,hu 2-27 Units [id number] rec.anlog 17:33: under the (LANTUS 57 skin at U-100 bedtime. INSULIN SC) budesonide- 2018-04 Yes 2{puff} Inhale 2 NPI:183 formoterol 2-27 Puffs 2 015026 1 (SYMBICORT) 17:33: (two) 80-4.5 57 times mcg/actuati daily. on inhaler tamsulosin 2018-04 Yes Take by NPI :183 0.4 mg 24 2-27 mouth at 103373 1 hr capsule 17:33: bedtime. 57 torsemide 2018-04 Yes 20mg Take 20 mg [employer] I:183 20 mg 2-27 by mouth 2 2207766 tablet 17:33: (two) 57 times daily. traZODone 2018-04 Yes 2722 100mg Take 100 NPI :183 100 mg 2-27 mg by [id number] tablet 17:33: mouth at 57 bedtime. Indication s: difficulty sleeping vitamin 2018-04 Yes 1000ug Take 1,000 [employer] I:183 B-12 2-27 mcg by [id number] (VITAMIN 17:33: mouth B-12) 1,000 57 daily. mcg tablet ascorbic 2018-04 Yes 500mg Take 500 NPI: 183 acid, 2-27 mg by [id number] vitamin C, 17:33: mouth 2 (VITAMIN C) 57 (two) 500 mg times tablet daily. ondansetron 2018-04 Yes 4mg Take 4 mg N PI:183 4 mg tablet 2-27 by mouth 1318 781 17:33: every 8 57 (eight) hours as needed. No known No NPI:183 medications [id number] Immunizations Ordered Immunization Filled Immunization Date Status Commen ts Source Name Name SARS-COV-2 COVID-19 2020-06-15 Completed NPI:1 [id number] PFIZER VACCINE 00:00:00 SARS-COV-2 COVID-19 2020-06-15 Completed NPI:1 [id number] PFIZER VACCINE 00:00:00 SARS-COV-2 COVID-19 2020-06-15 Completed NPI:1 [id number] PFIZER VACCINE 00:00:00 SARS-COV-2 COVID-19 2020-05-15 Completed NPI:1 [id number] PFIZER VACCINE 00:00:00 SARS-COV-2 COVID-19 2020-05-15 Completed NPI:1 [id number] PFIZER VACCINE 00:00:00 SARS-COV-2 COVID-19 2020-05-15 Completed NPI:1 [id number] PFIZER VACCINE 00:00:00 Procedures Procedure Date / Time Performed Performing Clinician [facility] e REFERRAL- 2021-07-24 05:01:00 Doctor Unassigned, No NPI:18 [id number] REQUEST/RESPONSE Name [facility] 2019-12-19 05:01:00 Doctor Unassigned, No [employer] I:[id number] Name [facility] 2019-10-19 05:01:00 Doctor Unassigned, No [employer] I:[id number] Name [facility] 2019-10-05 05:01:00 Doctor Unassigned, No [employer] I:[id number] Name [facility] 2019-09-21 05:01:00 Doctor Unassigned, No [employer] I:[id number] Name [facility] 2019-09-08 05:01:00 Doctor Unassigned, No [employer] I:[id number] Name [facility] 2019-06-30 05:01:00 Doctor Unassigned, No [employer] I:[id number] Name [facility] 2019-04-19 06:01:00 Doctor Unassigned, No [employer] I:[id number] Name [facility] PROVID[facility] 2018-12-10 05:01:00 Doctor Unassigned, No RECORDS Name Encounters Start End Encounter Admission Attending Care Care Encounter Source Date/Time Date/Time Type Type Clinicians Facility Department ID 2021-08-[address] [facility] [id number] NPI:174 13:42:03 Janie [id number] 2021-06-[address] [facility] [id number] NPI:174 15:14:02 Araseli [id number] 2021-05-[address] [facility] [id number] NPI:174 13:41:03 Araseli [id number] 2021-05-[address] [facility] [id number] NPI:174 14:39:28 Araseli [id number] 2021-11-222021-11-22 Outpatient R LEWIS [facility] [id number] NPI:183 14:00:00 14:00:00 REINA [id number] 1 2021-08-19 2021-08-19 Outpatient R [facility] [id number] NPI:183 11:00:00 11:00:00 [id number] 1 2021-08-19 2021-08-19 Outpatient R [facility] [id number] NPI:183 11:00:00 11:00:00 [id number] 1 2021-08-14 2021-08-14 ambulatory [facility] [id number] NPI:174 00:00:00 00:00:00 [id number] 9 2021-08-13 2021-08-13 ambulatory [facility] [id number] NPI:174 00:00:00 00:00:00 [id number] 9 2021-08-13 2021-08-13 ambulatory [facility]C [facility] [id number] NPI:174 00:00:00 00:00:00 [id number] 9 2021-08-12 2021-08-12 [id number] NPI:183 15:00:00 16:11:28 CARLY [id number] 1 2021-08-12 2021-08-12 [facility] [id number] NPI:183 15:00:00 15:00:00 CARLY [id number] 1 2021-08-07 2021-08-07 ambulatory [facility]LMLC [facility] [id number] NPI:174 00:00:00 00:00:00 [id number] 9 2021-08-07 2021-08-07 ambulatory [facility]LMLC [facility] [id number] NPI:174 00:00:00 00:00:00 [id number] 2021-07-24 2021-07-24 Michael MCGRATH 1.2.840.114 [id number] NPI:183 00:00:00 00:00:00 Only Unassigned, MICHAELLE 350.1.13.10 [id number] [place] [facility] 4.2.7.2.686 [id number] 2021-07-15 2021-07-15 ambulatory STLMLC ST[facility] [id number] NPI:174 00:00:00 00:00:00 [id number] 2021-07-12 2021-07-12 ambulatory STLMLC ST[facility] [id number] NPI:174 00:00:00 00:00:00 [id number] 2021-07-05 2021-07-05 ambulatory STLMLC ST[facility] [id number] NPI:174 00:00:00 00:00:00 [id number] 9 2021-06-07 2021-06-07 ambulatory STLMLC [facility] [id number] NPI:174 00:00:00 00:00:00 [id number] 9 2021-05-21 2021-05-21 ambulatory STLMLC ST[facility] [id number] NPI:174 00:00:00 00:00:00 [id number] 9 2021-05-20 2021-05-20 ambulatory STLMLC [facility] [id number] NPI:174 00:00:00 00:00:00 [id number] 9 2021-05-13 2021-05-13 ambulatory STLMLC ST[facility] [id number] NPI:174 00:00:00 00:00:00 [id number] 2020-06-27 2020-06-27 RAMILA Randall 1.2.840.114 [id number] 00:00:00 00:00:00 (Out) Georgi H MICHAELLE 350.1.13.10 [facility] 4.2.7.2.686 [id number] 2020-06-27 2020-06-27 RAMILA Randall 1.2.840.114 [id number] NPI:183 00:00:00 00:00:00 (Out) Georgi Piedra IMCHAELLE 350.1.13.10 [id number] [facility] 4.2.7.2.686 [id number] 2020-06-26 2020-06-26 Laboratory Lab, [facility] 1.2.840.114 [id number] 15:50:21 16:10:21 Only [facility] 350.1.13.10 [place] 4.2.7.2.686 Professio [phone] nal [address] One 2020-06-26 2020-06-26 Laboratory Lab, [facility] F[facility] Pob [facility] 1.2. 840.114 [id number] NPI:183 15:50:21 16:10:21 Only Ann Marie Khalil [facility] 350.1.13.10 [id number] [place] 4.2.7.2.686 Professio [id number] nal 044 [address] One 2020-06-26 2020-06-26 Outpatient [facility] [id number] NPI:183 15:40:00 15:40:00 [id number] 1 2020-06-26 2020-06-26 [facility] [id number] NPI:183 15:40:00 15:40:00 ANN MARIE [id number] 1 2020-06-15 2020-06-15 Outpatient R [facility] [id number] NPI:183 14:10:00 14:10:00 [id number] 1 2020-06-15 2020-06-15 Outpatient R HIRAM, [facility] [id number] NPI:183 14:10:00 14:10:00 MABEL [id number] 1 2020-06-08 2020-06-08 [facility] [id number] NPI:183 14:10:00 14:10:00 MABEL [id number] 1 2020-06-07 2020-06-07 Outpatient R [facility] [id number] NPI:183 14:00:00 14:00:00 [id number] 1 2020-06-05 2020-06-05 [facility] [id number] NPI:183 15:20:00 15:20:00 MABEL [id number] 1 2020-05-15 2020-05-15 [facility] [id number] NPI:183 15:40:00 15:40:00 PARAM [id number] 1 2020-05-15 2020-05-15 [facility] [id number] NPI:183 15:40:00 15:40:00 PARAM [id number] 1 2020-05-13 2020-05-[address] [facility] 1.2.840.114 [id number] 00:00:00 00:00:00 Outreach Param [facility] 350.1.13.10 [facility] 4.2.7.2.686 PAVILLION [id number] 2020-05-13 2020-05-[address] [facility] 1.2.840.114 [id number] NPI:183 00:00:00 00:00:00 Outreach Param [facility] 350.1.13.10 1 [id number] [facility] 4.2.7.2.686 PAVILLION [id number] 2020-03-28 2020-03-28 Laboratory Only, [facility] 1.2.840.114 [id number] 15:26:29 15:41:29 Only Test [place] 350.1.13.10 [place] 4.2.7.2.686 [place] [id number] 2020-03-28 2020-03-28 Laboratory Only, [facility] Test [facility] 1.2.840. 114 [id number] NPI:183 15:26:29 15:41:29 Only Gasper Barker 350.1.13.10 [id number] [place] 4.2.7.2.686 [place] [id number] 2020-03-28 2020-03-28 Outpatient R [facility] [id number] NPI:183 15:15:00 15:15:00 [id number] 1 2020-03-28 2020-03-28 Outpatient R [facility] [id number] NPI:183 15:15:00 15:15:00 [id number] 1 2020-03-13 2020-03-13 [facility] [id number] NPI:183 09:00:00 09:00:00 FREDDY [id number] 2020-03-13 2020-03-13 [facility] [id number] NPI:183 09:00:00 09:00:00 FREDDY [id number] 2790-08-31 2019-12-19 Outpatient [facility] [id number] NPI:183 00:00:00 00:00:00 [id number] 1 2019-12-19 2019-12-19 Orders Doctor RAMILA 1.2.840.114 [id number] 00:00:00 00:00:00 Only Unassigned, MICHAELLE 350.1.13.10 [facility] 2.7.2.686 [id number] 2019-12-19 2019-12-19 Orders Doctor RAMILA 1.2.840.114 [id number] NPI:183 00:00:00 00:00:00 Only Unassigned, MICHAELLE 350.1.13.10 [id number] [place] [address].2.7.2.686 [id number] 009 2019-10-25 2019-10-25 Outpatient [facility] [id number] NPI:183 00:00:00 00:00:00 [id number] 1 2019-10-25 2019-10-25 Outpatient R [facility] [id number] NPI:183 00:00:00 00:00:00 [id number] 1 2019-10-25 2019-10-25 Telephone RAMILA Hamilton 1.2.320.483 [id number] NPI:183 00:00:00 00:00:00 Camila BRASWELL 350.1.13.10 [id number] [facility] 4.2.7.2.686 [id number] 2019-10-25 2019-10-25 RAMILA Hart 1.2.835.779 [id number] 00:00:00 00:00:00 Camila BRASWELL 350.1.13.10 [facility] 4.2.7.2.686 [id number] 2019-10-21 2019-10-21 Outpatient R [facility] [id number] NPI:183 19:00:00 19:00:00 [id number] 1 2019-10-21 2019-10-21 Outpatient R MARINE, [facility] [id number] NPI:183 19:00:00 19:00:00 BECKIE [id number] 1 2019-10-21 2019-10-21 Laboratory Only, Adc Test [facility] 1.2.840. 114 [id number] NPI:183 07:15:41 07:15:49 Only [place] 350.1.13.10 [id number] [place] [address].2.7.2.686 [place] [id number] 2019-10-21 2019-10-21 Laboratory Only, [facility] 1.2.840.114 [id number] 07:15:41 07:15:49 Only Test [place] 350.1.13.10 [place] [address].2.7.2.686 [place] [id number] 2019-10-19 2019-10-19 Orders Doctor MCGRATH 1.2.840.114 [id number] NPI:183 00:00:00 00:00:00 Only Unassigned, MICHAELLE 350.1.13.10 [id number] [place] [address]686 [id number] 009 2019-10-19 2019-10-19 Orders Doctor MCGRATH 1.2.840.114 [id number] 00:00:00 00:00:00 Only Unassigned, MICHAELLE 350.1.13.10 [place] [address]686 [id number] [id number] 2019-10-18 2019-10-18 Outpatient [facility] [id number] NPI:183 00:00:00 00:00:00 [id number] 1 2019-10-05 2019-10-05 Orders Doctor MCGRATH 1.2.840.114 [id number] NPI:183 00:00:00 00:00:00 Only Unassigned, MICHAELLE 350.1.13.10 [id number] [place] [address]686 [id number] 009 2019-10-05 2019-10-05 Orders Doctor MCGRATH 1.2.840.114 [id number] 00:00:00 00:00:00 Only Unassigned, MICHAELLE 350.1.13.10 [place] [address] [id number] 009 2019-09-21 2019-09-21 Outpatient [facility] [id number] NPI:183 00:00:00 00:00:00 [id number] 1 2019-09-21 2019-09-21 Outpatient R [facility] [id number] NPI:183 00:00:00 00:00:00 [id number] 1 2019-09-21 2019-09-21 Orders Doctor MCGRATH 1.2.840.114 [id number] NPI:183 00:00:00 00:00:00 Only Unassigned, MICHAELLE 350.1.13.10 [id number] [facility] 4.2.7.2.686 [id number] [id number] 2019-09-21 2019-09-21 Orders Doctor MCGRATH 1.2.840.114 [id number] 00:00:00 00:00:00 Only Unassigned, MICHAELLE 350.1.13.10 [facility] 4.2.7.2.686 [id number] 2019-09-15 2019-09-15 Outpatient [facility] [id number] NPI:183 00:00:00 00:00:00 [id number] 1 2019-09-08 2019-09-08 Orders Doctor RAMILA Hardy.2.840.114 [id number] NPI:183 00:00:00 00:00:00 Only Unassigned, MICHAELLE 350.1.13.10 [id number] [place] [facility] 4.2.7.2.686 [id number] 2019-09-08 2019-09-08 Orders Doctor MCGRATH 1.2.840.114 [id number] 00:00:00 00:00:00 Only Unassigned, MICHAELLE 350.1.13.10 [facility] 4.2.7.2.686 [id number] 2019-08-17 2019-08-17 Outpatient [facility] [id number] NPI:183 00:00:00 00:00:00 [id number] 1 2019-06-30 2019-06-30 Outpatient [facility] [id number] NPI:183 00:00:00 00:00:00 [id number] 2019-06-30 2019-06-30 Orders Doctor RAMILA Hardy.2.840.114 [id number] NPI:183 00:00:00 00:00:00 Only Unassigned, MICHAELLE 350.1.13.10 [id number] [place] [facility] 4.2.7.2.686 [id number] 2019-06-30 2019-06-30 Orders Doctor RAMILA 1.2.840.114 [id number] 00:00:00 00:00:00 Only Unassigned, MICHAELLE 350.1.13.10 [place] [address]686 [id number] 009 2019-04-19 2019-04-19 Orders Doctor RAMILA Antony.2.840.114 [id number] NPI:183 00:00:00 00:00:00 Only Unassigned, MICHAELLE 350.1.13.10 [id number] [place] [address]686 [id number] 009 2019-04-19 2019-04-19 Orders Doctor RAMILA Antony.2.840.114 [id number] 00:00:00 00:00:00 Only Unassigned, MICHAELLE 350.1.13.10 [place] [address] [id number] [id number] 2019-04-09 2019-04-15 Inpatient X [facility] [id number] NPI:183 20:51:51 17:15:00 SARAH [id number] 1 2019-04-05 2019-04-05 Outpatient R LEONEL VARNER [facility] [id number] NPI:183 09:42:57 23:59:00 LEONEL VARNER [id number] 0456-08-23 2018-12-10 Orders Doctor RAMILA Rubio2.840.114 [id number] NPI:183 00:00:00 00:00:00 Only Unassigned, MICHAELLE 350.1.13.10 [id number] [place] [address].2.7.2.686 [id number] 009 2018-12-10 2018-12-10 Orders Doctor RAMILA Hardy.2.840.114 [id number] 00:00:00 00:00:00 Only Unassigned, MICHAELLE 350.1.13.10 [place] [address] [id number] [id number] Results This patient has no known results.
[2021-08-25 20:32] LABS: SARS-COV-2 RT PCR NEGATIVE (NEGATIVE)
--- NOTE | 2021-08-25 21:51 | ER ---
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 He also is still having abdominal pain. Coronavirus screen: diarrhea, vomiting. Client presents with at least one sign or symptom that may indicate coronavirus-19. Standard/surgical mask placed on the client. Ebola Screen: No symptoms or risks identified at this time. Initial Sepsis Screen: Does the patient meet any 2 criteria? No. Patient's initial sepsis screen is negative. Does the patient have a suspected source of infection? No. Patient's initial sepsis screen is negative. Risk Assessment: Do you want to hurt yourself or someone else? Patient reports no desire to harm self or others. Onset of symptoms was August 25, 2021. 19:29 Method Of Arrival: Wheelchair bb 19:29 Acuity: ERICK 3 bb Triage Assessment: 19:34 General: Appears in no apparent distress. Behavior is calm, cooperative. Pain: bb Complains of pain in abdomen Pain currently is 5 out of 10 on a pain scale. Neuro: Level of Consciousness is awake, alert, obeys commands, Oriented to person, place, time, situation. Cardiovascular: Capillary refill < 3 seconds Patient's skin is warm and dry. Respiratory: Respiratory effort is unlabored, Respiratory pattern is regular. GI: Abdomen is round Reports lower abdominal pain, upper abdominal pain, diarrhea, vomiting. Derm: Skin is pink, warm \T\ dry. Musculoskeletal: Circulation, motion, and sensation intact. Historical: - Allergies: 19:34 Iodine; bb - PMHx: 19:34 Anemia; Atrial Fib; CHF; COPD; Diabetes - IDDM; Gout; Hypothyroidism; PAD; bb - Immunization history:: Pfizer x 3. - Social history:: Smoking status: Patient/guardian denies using tobacco, the patient reports quitting approximately 21 years ago. Assessment: 21:47 Reassessment: pt and family decided they didn't want to wait for further evaluation and bb left the ED. Vital Signs: 19:29 BP 139 / 61; Pulse 70; Resp 18 S; Temp 98.1(O); Pulse Ox 98% on 2 lpm NC; Weight 84.37 bb kg (R); Height 5 ft. 8 in. (172.72 cm) (R); Pain 5/10; 19:29 Body Mass Index 28.28 (84.37 kg, 172.72 cm) lesley ED Course: 19:06 Patient arrived in ED. sabas 19:34 Triage completed. lesley 19:34 Arm band placed on Patient placed in waiting room, Patient notified of wait time. lesley Family accompanied patient. Administered Medications: No medications were administered Outcome: 21:50 Patient left the ED. lesley Signatures: Maria Alejandra Tabor RN RN Mari Gil
[2021-08-25 23:10] VITALS: BP 139/61; TEMP 98.1; O2SAT 98
== END 2021-08-25 21:50 | disposition left against medical advice (07) ==
LOC: ER 19:02
DX: Z53.21 Procedure and treatment not carried out due to patient leaving prior to being seen by health care provider (principal); Z20.822 Contact with and (suspected) exposure to COVID-19
CPT/HCPCS: 0240U; 99281

== ENCOUNTER 2021-09-10 07:26 | Day surgery (SDC) | payer OTHER ==
[2021-09-10] MEDS ORDERED: NA CHLORIDE 0.9% 1,000 ML ONE (08:13)
[2021-09-10] MEDS ORDERED: LIDOCAINE 1% MPF 5 ML VIAL ONE (09:11)
[2021-09-10] MEDS ORDERED: propofoL 200 MG/20 ML VIAL IV ONE (09:11)
[2021-09-10 10:27] VITALS: TEMP 97.1
[2021-09-10 10:32] VITALS: BP 139/65; O2SAT 96
== END 2021-09-10 10:20 | disposition home or self-care (01) ==
LOC: OR 07:26
PROVIDERS: ATTEND Internal Medicine Gastroenterology
PROC: 0DB88ZX Excision of Small Intestine, Via Natural or Artificial Opening Endoscopic, Diagnostic (ICD-10-PCS; 2021-09-10)
PROC: 0DB78ZX Excision of Stomach, Pylorus, Via Natural or Artificial Opening Endoscopic, Diagnostic (ICD-10-PCS; 2021-09-10)
PROC: 0DB98ZX Excision of Duodenum, Via Natural or Artificial Opening Endoscopic, Diagnostic (ICD-10-PCS; principal; 2021-09-10 08:30)
DX: C17.0 Malignant neoplasm of duodenum (principal); K59.1 Functional diarrhea; R11.10 Vomiting, unspecified; R53.1 Weakness; Z20.822 Contact with and (suspected) exposure to COVID-19; K29.50 Unspecified chronic gastritis without bleeding
CPT/HCPCS: 88312; 82947; 88305; 43239; U0003; J2704; J7030

== ENCOUNTER 2021-10-22 10:17 | Emergency (ER) | payer OTHER ==
--- NOTE | 2021-10-22 11:54 | RAD REPORT ---
EXAM DESCRIPTION: RAD - Chest Single View - 10/22/2021 10:59 am CLINICAL HISTORY: SOB COMPARISON: Portable September 2020 TECHNIQUE: AP portable chest image was obtained 10/22/2021 10:59 am . FINDINGS: No peripheral mass or consolidation. Interstitial markings are prominent throughout the mi d and lower lung armstrong. This is not substantially different from prior examination. Baseline interst itial pattern could mask early edema or infiltrate. Heart size is upper normal. Vasculature is mildly prominent. Pacemaker remains in place. No measurab le pleural effusion and no pneumothorax. No acute bony abnormality seen. No acute aortic findings veronique pected. IMPRESSION: No acute cardiopulmonary process. Baseline chronic interstitial pattern could mask early edema or infiltrate.
[2021-10-22] MEDS ORDERED: BEBTELOVIMAB 175 MG/2 ML VIAL IV ONE (12:58)
--- NOTE | 2021-10-22 14:17 | EDPHYS ---
Physician Documentation [facility] Name: Rudi Moreno Age: 76 yrs Sex: Male : 1945 Arrival Date: 10/22/2021 Time: 10:20 Bed 7 Private MD: ED Physician Roman Arnett Historical: - Allergies: 10/22 10:23 Iodine; ld1 - PMHx: 10:23 Anemia; Atrial Fib; CHF; COPD; Diabetes - IDDM; Gout; Hypothyroidism; PAD; ld1 - PSHx: 10:23 Abdominal surgery; ld1 - Immunization history:: Adult Immunizations up to date, Client reports receiving the 2nd dose of the Covid vaccine. - Social history:: Smoking status: Patient denies any tobacco usage or history of. Patient/guardian denies using alcohol. Vital Signs: 10:20 Pulse 70; Resp 24; Temp 98.4(O); Pulse Ox 74% on R/A; Weight 88.45 kg; Height 5 ft. 9 ld1 in. (175.26 cm); Pain 0/10; 10:24 Pulse Ox 97% on 4 lpm NC; ld1 10:37 BP 111 / 51; Pulse 70; Resp 19 S; Pulse Ox 97% on 4 lpm NC; jl7 12:28 BP 105 / 55; Pulse 70; Resp 23; Pulse Ox 96% ; bp 13:23 BP 101 / 71; Pulse 70; Resp 20; Pulse Ox 97% on 4 lpm NC; jl7 14:18 BP 107 / 56; Pulse 70; Resp 14; Pulse Ox 100% ; bp 10:20 Body Mass Index 28.80 (88.45 kg, 175.26 cm) ld1 MDM: 10:26 Patient medically screened. kb 10/22 10:28 Order name: COVID-19 SARS RT PCR (Document "Date of Onset" if Symptomatic); Complete kb Time: 12:46 10/22 10:25 Order name: CXR XRAY; Complete Time: 12:08 eb Administered Medications: 13:15 Drug: bebtelovimab 175 mg Route: IV; Rate: calculated rate; Site: right forearm; jl7 14:20 Follow up: IV Status: Completed infusion bp Disposition Summary: 10/22/21 14:16 Discharge Ordered Location: Home jl9 Condition: Stable jl9 Diagnosis - Coronavirus infection, unspecified jl9 Followup: jl9 - With: Emergency Department - When: - Reason: Worsening of condition Followup: jl9 - With: Private Physician - When: 2 - 3 days - Reason: Recheck today's complaints, Continuance of care, Re-evaluation by your physician Discharge Instructions: - Discharge Summary Sheet jl9 - Viral Respiratory Infection, [id number] jl9 - COVID-19 jl9 Forms: - Medication Reconciliation Form jl9 - Thank You Letter jl9 - Antibiotic Education jl9 - Prescription Opioid Use jl9 Signatures: Dispatcher [employer] EDVT Elba Sterling, CIRCULATION SUPERVISOR-C CIRCULATION SUPERVISOR-Elizabeth Omlaley RN RN jl7 Marimar Bennett RN RN ld1 Jay Roy jl9 Ken Juan RN bp
--- NOTE | 2021-10-22 14:17 | ER ---
Nurse's Notes [facility] Name: Rudi Moreno Age: 76 yrs Sex: Male : 1945 Arrival Date: 10/22/2021 Time: 10:20 Bed 7 Private MD: Diagnosis: Coronavirus infection, unspecified Presentation: 10/22 10:20 Chief complaint: Patient states: I tested positive for COVID this morning. My daughter ldAntony made me come to the ER this morning because my oxygen was 80 at home. Upon arrival to ER SpO2 74% RA - pt home oxygen machine was not working properly. Pt 97% 4L NC. Coronavirus screen: Client presents with at least one sign or symptom that may indicate coronavirus-19. Standard/surgical mask placed on the client. Ebola Screen: No symptoms or risks identified at this time. Initial Sepsis Screen: Does the patient meet any 2 criteria? No. Patient's initial sepsis screen is negative. Does the patient have a suspected source of infection? No. Patient's initial sepsis screen is negative. Risk Assessment: Do you want to hurt yourself or someone else? Patient reports no desire to harm self or others. Onset of symptoms was October 22, 2021 at 10:23. 10:20 Method Of Arrival: Wheelchair ld1 10:20 Acuity: ERICK 3 ld1 Triage Assessment: 10:23 General: Appears in no apparent distress. comfortable, Behavior is cooperative, ld1 anxious. Pain: Denies pain. EENT: No signs and/or symptoms were reported regarding the EENT system. Neuro: Level of Consciousness is awake, alert, obeys commands, Oriented to person, place, time, situation. Cardiovascular: Capillary refill < 3 seconds Patient's skin is warm and dry. Respiratory: Reports shortness of breath cough that is Airway is patent Respiratory effort is even, labored, Onset: The symptoms/episode began/occurred just prior to arrival, the patient has moderate shortness of breath. GI: Abdomen is round non-distended. GI: Reports diarrhea, nausea, vomiting. : No signs and/or symptoms were reported regarding the genitourinary system. Derm: No signs and/or symptoms reported regarding the dermatologic system. Musculoskeletal: No signs and/or symptoms reported regarding the musculoskeletal system. Historical: - Allergies: 10:23 Iodine; ld1 - PMHx: 10:23 Anemia; Atrial Fib; CHF; COPD; Diabetes - IDDM; Gout; Hypothyroidism; PAD; ld1 - PSHx: 10:23 Abdominal surgery; ld1 - Immunization history:: Adult Immunizations up to date, Client reports receiving the 2nd dose of the Covid vaccine. - Social history:: Smoking status: Patient denies any tobacco usage or history of. Patient/guardian denies using alcohol. Screenin:38 Abuse screen: Denies threats or abuse. Denies injuries from another. Nutritional jl7 screening: No deficits noted. Tuberculosis screening: No symptoms or risk factors identified. Fall Risk None identified. Assessment: 10:38 General: Appears in no apparent distress. uncomfortable, Behavior is calm, cooperative, jl7 appropriate for age. Pain: Denies pain. Neuro: Mckeon Agitation-Sedation Scale (RASS): 0 - Alert and Calm Level of Consciousness is awake, alert, obeys commands, Oriented to person, place, time, situation. Cardiovascular: Patient's skin is warm and dry. Rhythm is regular. Respiratory: Airway is patent Respiratory effort is even, unlabored, Respiratory pattern is regular, symmetrical. Derm: Skin is pink, warm \T\ dry. 12:30 Reassessment: Patient and/or family updated on plan of care and expected duration. Pain bp level reassessed. Patient states symptoms have improved. 13:23 Reassessment: Patient appears in no apparent distress at this time. No changes from jl7 previously documented assessment. Patient and/or family updated on plan of care and expected duration. Pain level reassessed. Patient is alert, oriented x 3, equal unlabored respirations, skin warm/dry/pink. 13:40 Reassessment: Pt's daughter reports pt has a home health nurse that was going to see jl7 the pt today but due to covid dx she will not come to see the pt. Pt recently had abdominal surgery, has a healing abdominal surgical incision, daughter reports the distal portion of the incision looks infected and has dehisced in a small area. SARAH Arreola notified and at bedside. 14:19 Reassessment: PT D/C HOME AMBULATORY WITH FAMILY, DX WITH SARS. Respiratory: bp Respiratory effort is even, unlabored, Respiratory pattern is regular, symmetrical, Breath sounds are coarse bilaterally. Vital Signs: 10:20 Pulse 70; Resp 24; Temp 98.4(O); Pulse Ox 74% on R/A; Weight 88.45 kg; Height 5 ft. 9 ld1 in. (175.26 cm); Pain 0/10; 10:24 Pulse Ox 97% on 4 lpm NC; ld1 10:37 BP 111 / 51; Pulse 70; Resp 19 S; Pulse Ox 97% on 4 lpm NC; jl7 12:28 BP 105 / 55; Pulse 70; Resp 23; Pulse Ox 96% ; bp 13:23 BP 101 / 71; Pulse 70; Resp 20; Pulse Ox 97% on 4 lpm NC; jl7 14:18 BP 107 / 56; Pulse 70; Resp 14; Pulse Ox 100% ; bp 10:20 Body Mass Index 28.80 (88.45 kg, 175.26 cm) ld1 ED Course: 10:20 Patient arrived in ED. ld1 10:23 Triage completed. ld1 10:23 Arm band placed on right wrist. ld1 10:26 Elba Sterling FNP-C is [facility]. kb 10:26 Roman Arnett DO is Attending Physician. kb 10:34 Elizabeth Keene RN is Primary Nurse. jl7 10:38 Patient has correct armband on for positive identification. Bed in low position. Call jl7 light in reach. Side rails up X2. Pulse ox on. NIBP on. 10:38 COVID swab sent to lab. jl7 11:01 CXR XRAY In Process Unspecified. EDMS 13:13 Inserted saline lock: 22 gauge in right forearm, using aseptic technique. jl7 14:20 No provider procedures requiring assistance completed. IV discontinued, intact, bp bleeding controlled, No redness/swelling at site. Pressure dressing applied. Administered Medications: 13:15 Drug: bebtelovimab 175 mg Route: IV; Rate: calculated rate; Site: right forearm; jl7 14:20 Follow up: IV Status: Completed infusion bp Medication: 10:38 VIS not applicable for this client. jl7 Outcome: 14:16 Discharge ordered by . jl9 14:20 Discharged to home via wheelchair, with family. bp 14:20 Condition: stable 14:20 Discharge instructions given to patient, family, Instructed on discharge instructions, follow up and referral plans. Demonstrated understanding of instructions, follow-up care. 14:43 Patient left the ED. bp Signatures: Dispatcher [employer] EDMS Elba Sterling, IZZY-Manuela NAVAP-Elizabeth Omalley RN RN jl7 Ken Juan RN RN bp Marimar Bennett, RN RN ld1 Jay Roy jl9
[2021-10-22 14:53] VITALS: TEMP 98.4
[2021-10-22 15:02] VITALS: BP 107/56; O2SAT 100
== END 2021-10-22 14:43 | disposition home or self-care (01) ==
LOC: ER 10:17
DX: U07.1 COVID-19 (principal); E11.9 Type 2 diabetes mellitus without complications; J44.9 Chronic obstructive pulmonary disease, unspecified; I50.9 Heart failure, unspecified; Z91.048 Other nonmedicinal substance allergy status
CPT/HCPCS: 71045; U0003